=== PATIENT | female | born 1980 | race Caucasian/White ===

== ENCOUNTER 2023-01-23 12:55 | Emergency (ER) | payer OTHER, SELFPAY ==
[2023-01-23 13:02] VITALS: BP 145/98; PULSE 85; RESP 20; TEMP 36.5; O2SAT 97; BMI 26.5
--- NOTE | 2023-01-23 13:19 | ED.DENTAL1 ---
HPI - Dental/Oral General Chief complaint: Dental/Oral Stated complaint: SEVERE MOUTH PAIN Time Seen by Provider: 01/23/23 13:02 Source: patient Mode of arrival: walk-in Limitations: no limitations History of Present Illness HPI Narrative: Patient is a 42-year-old female who presents to the emergency department with increasing dental pain for the last week. She has a history of multiple dental caries but states she believes she chipped her tooth on her lip ring and has had an increase in pain to the jaw. There has not been any drainage from the tooth. No fevers or vomiting. She has no concern for . She states she had to miss work yesterday and her dentist cannot see her for 6-8 weeks which prompted her to come to the Emergency Room. Related Data Previous Rx's Medication Instructions Recorded amoxicillin 500 mg capsule 500 mg PO TID 10 days #30 caps 01/23/23 ketorolac 10 mg tablet 10 mg PO TID PRN pain #10 tabs 01/23/23 Allergies Allergy/AdvReac Type Severity Reaction Status Date / Time No Known Drug Allergies Allergy Verified 01/23/23 13:01 Review of Systems ROS Constitutional Denies: fever or chills Ears, nose, mouth, and throat Denies: throat pain Cardiovascular Denies: chest pain Respiratory Denies: shortness of breath or cough Gastrointestinal Denies: nausea or vomiting Musculoskeletal Denies: back pain or neck pain Integumentary/Breast Denies: rash Neurological Denies: headache Hematologic/Lymphatic Denies: easy bruising PFSH PFSH Social History Smoking status: Heavy tobacco smoker Exam Narrative Exam Narrative: Gen.: Awake, alert, in no distress Head: Normocephalic, atraumatic ENT: Moist mucous membranes, multiple dental caries noted with generally poor dentition and partial avulsion of tooth #28, no abscess or drainage noted. No redness or swelling under the tongue. No trismus or drooling. Clear speech. Respiratory: No respiratory distress Extremities: Moves extremities equally Psych: Normal mood and affect Neuro: No focal neuro deficit Skin: Warm, dry, intact Constitutional Vital Signs, click to edit/add: Last Vital Signs Temp 97.7 F 01/23/23 13:02 Pulse 85 01/23/23 13:02 Resp 20 01/23/23 13:02 BP 145/98 H 01/23/23 13:02 Pulse Ox 97 01/23/23 13:02 Course Vital Signs Vital signs: Vital Signs Temperature 97.7 F 01/23/23 13:02 Pulse Rate 85 01/23/23 13:02 Respiratory Rate 20 01/23/23 13:02 Blood Pressure 145/98 H 01/23/23 13:02 Pulse Oximetry 97 01/23/23 13:02 Temperature 97.7 F 01/23/23 13:02 Pulse Rate 85 01/23/23 13:02 Respiratory Rate 20 01/23/23 13:02 Blood Pressure 145/98 H 01/23/23 13:02 Pulse Oximetry 97 01/23/23 13:02 MDM - Dental/Oral MDM Narrative Medical decision making narrative: Exam is consistent with dental caries, no significant dental abscess at this time. Patient started on amoxicillin, NSAIDs with topical analgesia. Dental referrals provided. Work note provided. Follow-up with PCP and dentist and return to the Emergency Room if symptoms change or worsen. Medical Records Attestation: I reviewed the patient's medical records. Discharge Plan Discharge Chief Complaint: Dental/Oral Clinical Impression: Dental caries, Toothache Patient Disposition: Home, Self-Care Time of Disposition Decision: 13:17 Condition: Good Prescriptions / Home Meds: New amoxicillin 500 mg capsule 500 mg PO TID 10 Days Qty: 30 0RF ketorolac 10 mg tablet 10 mg PO TID PRN (Reason: pain) Qty: 10 0RF Instructions: Toothache (ED) Stand Alone Forms: Portal Instructions Referrals: Guillermo Pennington MD [Primary Care Provider] - 1 week
[2023-01-23] MEDS: BENZOCAINE 30 ML, lidocaine HCL 15 ML MM (13:27)
== END 2023-01-23 13:36 | disposition home or self-care (01) ==
PROVIDERS: Emergency Provider Student in an Organized Health Care Education/Training Program; PCP Family Medicine
DX: K02.9 Dental caries, unspecified (principal); K08.89 Other specified disorders of teeth and supporting structures; F17.210 Nicotine dependence, cigarettes, uncomplicated
CPT/HCPCS: 99283

== ENCOUNTER 2023-06-23 15:48 | Emergency (ER) | payer OTHER, SELFPAY ==
[2023-06-23 15:54] VITALS: BP 164/92; PULSE 85; RESP 18; TEMP 36.9; O2SAT 98; BMI 26.5
--- NOTE | 2023-06-23 16:07 | ED.ABDPAIN1 ---
HPI - Abdominal Pain General Chief Complaint: Abdominal Pain Stated Complaint: gallbladder, vomiting Time Seen by Provider: 06/23/23 15:55 Source: patient Mode of arrival: walk-in Limitations: no limitations History of Present Illness HPI narrative: 42 year old female presents to the ED for right-sided abd pain, N/V. Onset was 3 days ago. It became worse today. Denies fever, chills, injury, urinary sx, diarrhea. She has not had any episodes of emesis today. Rates her pain 10/10. The pain wraps around to her right flank. Reports increased pain with minimal palpation and movement. Denies chance of . She is accompanied by family. Reports previous tubal ligation. Related Data Previous Rx's Medication Instructions Recorded dicyclomine 10 mg capsule 10 mg PO TID PRN abdominal pain 06/23/23 #12 caps ondansetron 4 mg disintegrating 4 mg PO Q8H PRN nausea and 06/23/23 tablet vomiting 4 days #12 tabs Allergies Allergy/AdvReac Type Severity Reaction Status Date / Time No Known Drug Allergies Allergy Verified 01/23/23 13:01 Review of Systems ROS Constitutional Denies: fever or chills Cardiovascular Denies: chest pain Respiratory Denies: shortness of breath or cough Gastrointestinal Reports: abdominal pain, nausea and vomiting; Denies: diarrhea Genitourinary Denies: painful urination, urinary frequency, urinary urgency or blood in urine Musculoskeletal Reports: back pain; Denies: neck pain Integumentary/Breast Denies: rash or itching PFSH PFSH Social History Smoking status: Former smoker Exam Constitutional Vital Signs, click to edit/add: Last Vital Signs Temp 98.4 F 06/23/23 15:54 Pulse 74 06/23/23 18:32 Resp 18 06/23/23 18:32 BP 144/82 H 06/23/23 18:32 Pulse Ox 98 06/23/23 18:32 O2 Del Method Room Air 06/23/23 18:32 Common normals: no apparent distress and oriented x3 General appearance: cooperative; not ill appearing HENMT Mouth: oral and palatal mucosa normal and lip normal Eye Common normals: conjunctivae normal and no scleral icterus Neck & C-Spine Common normals: supple Chest Chest: symmetrical chest wall rise Respiratory Common normals: normal respiratory effort Effort & inspection: able to speak in complete sentences Cardio Common normals: regular rate and regular rhythm GI Inspection: normal to inspection Auscultation: normoactive bowel sounds Palpation: soft and tender Details: RLQ; no guarding and not rigid Back & Pelvis Common normals: no CVA tenderness Neuro Common normals: oriented x3 Sensorium/orientation: awake and alert Speech: speech normal Course Vital Signs Vital signs: Vital Signs Temperature 98.4 F 06/23/23 15:54 Pulse Rate 85 06/23/23 15:54 Respiratory Rate 18 06/23/23 15:54 Blood Pressure 164/92 H 06/23/23 15:54 Pulse Oximetry 98 06/23/23 15:54 Oxygen Delivery Method Room Air 06/23/23 15:54 Temperature 98.4 F 06/23/23 15:54 Pulse Rate 74 06/23/23 18:32 Respiratory Rate 18 06/23/23 18:32 Blood Pressure 144/82 H 06/23/23 18:32 Pulse Oximetry 98 06/23/23 18:32 Oxygen Delivery Method Room Air 06/23/23 18:32 MDM - Abdominal Pain Differential Diagnosis Differential diagnosis: Likely abdominal pain, acute appendicitis, calculus of kidney, diverticulitis, gastroenteritis, pancreatitis, small bowel obstruction and other Medical Records Attestation: I reviewed the patient's medical records. Medical records narrative: CBC, CMP, lipase, and urinalysis were unremarkable. CT scan was negative for acute findings. She was given medication here with improvement in her symptoms. She was given a copy of her CT report. She was encouraged to follow up with her pcp for a recheck, further evaluation and treatment. Return precautions were discussed. Lab Data Attestation: I reviewed the patient's lab results. Labs: Lab Results 06/23/23 06/23/23 Range/Units 16:00 16:30 WBC 9.8 (4.0-11.0) 10^3/uL RBC 4.61 (4.20-5.40) 10^6/uL Hgb 12.9 (12.0-16.0) g/dL Hct 40.0 (36.0-48.0) % MCV 86.8 (81.0-99.0) fL MCH 28.0 (26.7-34.0) pg MCHC 32.3 (29.9-35.2) g/dL RDW 12.7 (11.0-15.0) % Plt Count 421 (150-450) 10^3/uL MPV 10.6 (9.5-13.5) fL Neut % (Auto) 59.7 (43.0-75.0) % Lymph % (Auto) 30.7 (20.5-60.0) % Schleicher % (Auto) 7.0 (1.7-12.0) % Eos % (Auto) 1.5 (0.9-7.0) % Baso % (Auto) 0.9 (0.2-2.0) % Neut # (Auto) 5.8 (1.4-6.5) 10^3/uL Lymph # (Auto) 3.0 (1.2-3.8) 10^3/uL Schleicher # (Auto) 0.7 (0.3-0.8) 10^3/uL Eos # (Auto) 0.2 (0.0-0.7) 10^3/uL Baso # (Auto) 0.1 (0.0-0.1) 10^3/uL Abs Immat Gran (auto) 0.02 (0.00-0.03) 10^3/uL Imm/Tot Granulo (auto) 0.2 (0.0-0.5) % Sodium 137 (136-145) mmol/L Potassium 4.2 (3.5-5.1) mmol/L Chloride 102 (98-107) mmol/L Carbon Dioxide 29.8 (21.0-32.0) mmol/L Anion Gap 9.4 BUN 14.0 (7.0-18.0) mg/dL Creatinine 0.75 (0.55-1.02) mg/dL Est GFR ( Amer) >60 (>=60) Est GFR (Non-Af Amer) >60 (>=60) BUN/Creatinine Ratio 18.7 Glucose 90 (74-106) mg/dL Calcium 8.6 (8.5-10.1) mg/dL Total Bilirubin 0.4 (0.2-1.0) mg/dL AST 17 (15-37) U/L ALT 23 (14-59) U/L Alkaline Phosphatase 52 (46-116) U/L Total Protein 7.0 (6.4-8.2) g/dL Albumin 3.4 (3.4-5.0) g/dL Globulin 3.6 g/dL Albumin/Globulin Ratio 0.9 Lipase 32.0 (16.0-77.0) U/L Urine Color Lt. yellow (YELLOW) Urine Clarity Clear (CLEAR) Urine pH 8.0 (5.0-9.0) Ur Specific [place] 1.020 (1.005-1.025) Urine Protein Negative (NEG/TRACE) mg/dL Urine Glucose (UA) Negative (NEGATIVE) mg/dL Urine Ketones Negative (NEGATIVE) mg/dL Urine Occult Blood Negative (NEGATIVE) Urine Nitrite Negative (NEGATIVE) Urine Bilirubin Negative (NEGATIVE) Urine Urobilinogen 0.2 (0.2-1.0) EU/dL Ur Leukocyte Esterase Trace A (NEGATIVE) Urine RBC 0-2 (0-2) #/HPF Urine WBC 2-5 A (NONE SEEN) #/HPF Ur Squamous Epith Cells Moderate A (NONE/RARE) #/LPF Urine Crystals None seen (None Seen) #/HPF Urine Bacteria Trace A (NONE SEEN) #/HPF Urine Casts None seen (NONE SEEN) #/LPF Urine Mucus None seen (NONE SEEN) Ur Culture Indicated? No Urine HCG, Qual Negative (NEGATIVE) Imaging Data CT scan - abdomen: Attestation: I have reviewed the pertinent imaging results. Radiologist's impression: ITS Impressions Abdomen/Pelvis CT 06/23/23 16:39 IMPRESSION: No acute abdominal pathology. No acute inflammatory process. No obstructing urinary tract stone. No evidence for bowel obstruction. Electronically authenticated by: ALEXIS MONACO Date: 06/23/2023 17:45 Procedure: CT abdomen pelvis w con EXAM: CT abdomen pelvis w con TECHNIQUE: Axial CT images were obtained of the abdomen and pelvis with intravenous contrast. Sagittal and coronal reformatted images were also obtained. Dose reduction techniques were achieved by using automated exposure control and/or adjustment of mA and/or kV according to patient size and/or use of iterative reconstruction technique. HISTORY: Right-sided abd pain for 3 days COMPARISON: None. FINDINGS: Lower chest: The lower lungs are clear. Liver: The liver is homogeneous with normal contours and normal size. Gallbladder: The gallbladder is unremarkable. There is no intra or extrahepatic biliary dilatation. Pancreas: The pancreas is homogeneous without evidence for mass lesion or inflammation. Spleen: The spleen is unremarkable without evidence for mass lesion. Adrenal glands: The adrenal glands are unremarkable Kidneys and bladder: The kidneys are unremarkable with no evidence for mass lesion, hydronephrosis or inflammation. The ureters demonstrate normal caliber. The urinary bladder is unremarkable. GI Tract: Stomach is unremarkable. Visualized small bowel is unremarkable without evidence for obstruction or active inflammation. The appendix is unremarkable.The visualized portion of the large bowel is unremarkable. Reproductive: Small fibroid of the anterior body of the uterus. Lymph nodes: No retroperitoneal or abdominal lymphadenopathy. Vascular: The aorta is not dilated. Peritoneum: No free intraperitoneal air or fluid. No acute inflammation. 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 No acute findings. CT/CT abdomen pelvis w con IMPRESSION: No acute abdominal pathology. No acute inflammatory process. No obstructing urinary tract stone. No evidence for bowel obstruction. Electronically authenticated by: ALEXIS MONACO Date: 06/23/2023 17:45 Discharge Plan Discharge Chief Complaint: Abdominal Pain Clinical Impression: Nausea & vomiting, Abdominal pain Patient Disposition: Home, Self-Care Time of Disposition Decision: 18:25 Condition: Good Mode of Transportation: Private Vehicle Prescriptions / Home Meds: New ondansetron 4 mg tablet,disintegrating 4 mg PO Q8H PRN (Reason: nausea and vomiting) 4 Days Qty: 12 0RF dicyclomine 10 mg capsule 10 mg PO TID PRN (Reason: abdominal pain) Qty: 12 0RF Instructions: Acute Nausea and Vomiting (ED), Acute Abdominal Pain (ED) Stand Alone Forms: Portal Instructions Referrals: AMBER PATEL APRN [Primary Care Provider] - As soon as possible Discharge Date/Time: 06/23/23 18:34
[2023-06-23 16:13] LABS: Basophils Absolute Auto 0.1 10^3/uL (0.0-0.1); Basophils Percent Auto 0.9 % (0.2-2.0); Eosinophils Absolute Auto 0.2 10^3/uL (0.0-0.7); Eosinophils Percent Auto 1.5 % (0.9-7.0); Hemoglobin 12.9 g/dL (12.0-16.0); Immature Granulocytes Abs Auto 0.02 10^3/uL (0.00-0.03); Immature Granulocytes Pct Auto 0.2 % (0.0-0.5); Lymphocytes Percent Auto 30.7 % (20.5-60.0); Mean Corpuscular HGB Conc 32.3 g/dL (29.9-35.2); Mean Corpuscular Volume 86.8 fL (81.0-99.0); Mean Platelet Volume 10.6 fL (9.5-13.5); Monocytes Absolute Auto 0.7 10^3/uL (0.3-0.8); Neutrophils Absolute Auto 5.8 10^3/uL (1.4-6.5); Neutrophils Percent Auto 59.7 % (43.0-75.0); Platelet Count 421 10^3/uL (150-450); Red Blood Count 4.61 10^6/uL (4.20-5.40); Red Cell Distribution Width 12.7 % (11.0-15.0); White Blood Count 9.8 10^3/uL (4.0-11.0)
[2023-06-23] MEDS: ONDANSETRON PF 4 MG/2 ML VIAL IV (16:24)
[2023-06-23] MEDS: FENTANYL CITRATE/PF 100 MCG/2 ML VIAL 50 MCG IV (16:24)
[2023-06-23] MEDS: 0.9 % SODIUM CHLORIDE 1,000 ML 999 ML IV (16:24)
[2023-06-23 16:25] LABS: Alanine Aminotransferase 23 U/L (14-59); Albumin Globulin Ratio 0.9; Albumin Level 3.4 g/dL (3.4-5.0); Alkaline Phosphatase 52 U/L (46-116); Anion Gap 9.4; Aspartate Amino Transferase 17 U/L (15-37); BUN Creatinine Ratio 18.7; Bilirubin Total 0.4 mg/dL (0.2-1.0); Calcium 8.6 mg/dL (8.5-10.1); Carbon Dioxide 29.8 mmol/L (21.0-32.0); Chloride 102 mmol/L (98-107); Estimated GFR (African America >60 (>=60); Estimated GFR (Non-African Ame >60 (>=60); Globulin 3.6 g/dL; Glucose 90 mg/dL (74-106); Potassium 4.2 mmol/L (3.5-5.1); Sodium 137 mmol/L (136-145)
[2023-06-23 16:39] VITALS: BP 135/81; PULSE 73; RESP 16; O2SAT 98
--- NOTE | 2023-06-23 16:39 | CT_ITS ---
[address] [address] Patient Name: VINCENT SARAVIA MRN: [id number] date: 1980 Sex: F Assigned Patient Location: ER Current Patient Location: ER Accession/Order Number: [id number] Exam Date: 06/23/2023 16:55 Report Date: 06/23/2023 17:45 At the request of: JOYCE CALIXTO Procedure: CT abdomen pelvis w con EXAM: CT abdomen pelvis w con TECHNIQUE: Axial CT images were obtained of the abdomen and pelvis with intravenous contrast. Sagittal and coronal reformatted images were also obtained. Dose reduction techniques were achieved by using automated exposure control and/or adjustment of mA and/or kV according to patient size and/or use of iterative reconstruction technique. HISTORY: Right-sided abd pain for 3 days COMPARISON: None. FINDINGS: Lower chest: The lower lungs are clear. Liver: The liver is homogeneous with normal contours and normal size. Gallbladder: The gallbladder is unremarkable. There is no intra or extrahepatic biliary dilatation. Pancreas: The pancreas is homogeneous without evidence for mass lesion or inflammation. Spleen: The spleen is unremarkable without evidence for mass lesion. Adrenal glands: The adrenal glands are unremarkable Kidneys and bladder: The kidneys are unremarkable with no evidence for mass lesion, hydronephrosis or inflammation. The ureters demonstrate normal caliber. The urinary bladder is unremarkable. GI Tract: Stomach is unremarkable. Visualized small bowel is unremarkable without evidence for obstruction or active inflammation. The appendix is unremarkable.The visualized portion of the large bowel is unremarkable. Reproductive: Small fibroid of the anterior body of the uterus. Lymph nodes: No retroperitoneal or abdominal lymphadenopathy. Vascular: The aorta is not dilated. Peritoneum: No free intraperitoneal air or fluid. No acute inflammation. 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 No acute findings. CT/CT abdomen pelvis w con IMPRESSION: No acute abdominal pathology. No acute inflammatory process. No obstructing urinary tract stone. No evidence for bowel obstruction. Electronically authenticated by: ALEXIS MONACO Date: 06/23/2023 17:45
[2023-06-23 16:51] LABS: Bilirubin Urine NEGATIVE (NEGATIVE); Blood Urine NEGATIVE (NEGATIVE); Clarity Urine CLEAR (CLEAR); Color Urine LT. YELLOW (YELLOW); Glucose Urine UA NEGATIVE (NEGATIVE); Ketones Urine NEGATIVE (NEGATIVE); Leukocyte Esterase Urine TRACE (NEGATIVE); Nitrite Urine NEGATIVE (NEGATIVE); Protein Urine NEGATIVE (NEG/TRACE); Urobilinogen Urine 0.2 EU/dL (0.2-1.0)
[2023-06-23 16:53] LABS: HCG Qualitative Urine* NEGATIVE (NEGATIVE)
[2023-06-23 16:54] LABS: Urine Microscopic Indicated YES
[2023-06-23 17:04] LABS: Bacteria Urine TRACE #/HPF (NONE SEEN); Cast Seen? NONE SEEN #/LPF (NONE SEEN); Crystals Seen? None Seen #/HPF (None Seen); Mucus Urine NONE SEEN (NONE SEEN); RBC Urine 0-2 #/HPF (0-2); Squamous Epithelial Cell Urine MODERATE #/LPF (NONE/RARE); Urine Culture Indicated NO
[2023-06-23 17:14] VITALS: BP 141/95; PULSE 73; RESP 16; O2SAT 98
[2023-06-23] MEDS: DICYCLOMINE HCL 20 MG/2 ML VIAL IM (18:09)
[2023-06-23 18:11] VITALS: BP 132/85; PULSE 69; RESP 18; O2SAT 97
[2023-06-23 18:32] VITALS: BP 144/82; PULSE 74; RESP 18; O2SAT 98
== END 2023-06-23 18:34 | disposition home or self-care (01) ==
PROVIDERS: Nurse Practitioner Family; Emergency Provider Emergency Medicine; PCP Nurse Practitioner Primary Care
DX: R10.9 Unspecified abdominal pain (principal); R11.2 Nausea with vomiting, unspecified; Z87.891 Personal history of nicotine dependence
CPT/HCPCS: 36415; 74177; 80053; 81001; 83690; 84703; 85025; 96361; 96372; 96374; 96375; 99285; J0500; J2405; J3010; Q9967

== ENCOUNTER 2023-09-01 12:57 | Emergency (ER) | payer OTHER, SELFPAY ==
[2023-09-01 13:03] VITALS: BP 128/79; PULSE 101; RESP 38; TEMP 37; O2SAT 100; BMI 27.4
--- OUTSIDE RECORDS SUMMARY | 2023-09-01 13:11 | XMS_ITS | CCD ---
Author Organization [facility] Care Team Providers Care Tile Roofer Name Role Phone Je Rodriguez CNP Primary Care Provider [phone] Luz Pennington MD Primary Care Provider [phone] LUZ PENNINGTON Primary Care Unavailable MIKAYLA AUSTIN Attending Unavailable Priscilla Dash CNP Primary Care Provider [phone] Luz Pennington MD Primary Care Provider [phone] JE RODRIGUEZ Referring Unavailable LUZ PENNINGTON Primary Care Unavailable Brina Brothers CNP Primary Care Provider [phone] IDANIA JORGE Consulting Unavailchicho JORGE, DR IDANIA Atkinson Attending Unavailchicho PENNINGTON ., DR ESCOBAR Primary Care Unavailable DR IDANIA JORGE Admitting Unavailchicho e IVETTE ., DR ESCOBAR Admitting Unavailable IVETTE ., DR ESCOBAR Primary Care Unavailable IVETTE ., DR ESCOBAR Consulting Unavailable IVETTE ., DR ESCOBAR Attending Unavailable AMBER PATEL Primary Care Unavailable SAUL FERNANDEZ Attending Unavailable LUZ PENNINGTON Primary Care Unavailable ANY VILLAR Attending Unavailable ANY VILLAR Attending Unavailable ANY VILLAR Referring Unavailable LUZ PENNINGTON Primary Care Unavailable Medications Current Medications Medication Drug Class(es) Dates Sig (Normalized) Sig (Original) Acetaminophen / HYDROcodone (1 source) Opioid Agonist Start: 11-13-2021 hydrocodone-acetamin ophen (NORCO) tablet 5-325 mg (STARTER PACK) cloNIDine hydrochloride 0.1 mg oral tablet (20 sources) Central alpha-2 Adrenergic Agonist Start: 07-25-2021 cloNIDine HCl 0.1 MG Oral Tablet 07/25/2021 Provider: cyclobenzaprine hydrochloride 5 mg oral tablet (10 sources) Muscle Relaxant Start: 12-23-2021 Cyclobenzaprine HCl 5 MG Oral Tablet 12/23/2021 Provider: Je Rodriguez CNP End: 11-13-2021 take 1 tablet by mouth three times daily as needed for muscle spasms cyclobenzaprine (FLEXERIL) 10 MG tablet Take 10 mg by mouth 3 times daily as needed for Muscle spasms 0 11/13/2021 Discontinued (LIST CLEANUP) doxepin hydrochloride 10 mg oral capsule (9 sources) Tricyclic Antidepressant Start: 11-25-2021 Doxepin HCl 10 MG Oral Capsule 11/25/2021 Provider: EQ Nicotine 21 MG/24HR Transdermal Patch 24 Hour (4 sources) Start: 02-06-2022 EQ Nicotine 21 MG/24HR Transdermal Patch 24 Hour 02/06/2022 Provider: Brina Brothers CNP famotidine 40 mg oral tablet (18 sources) Histamine-2 Receptor Antagonist Start: 10-06-2021 Famotidine 40 MG Oral Tablet 10/06/2021 Provider: Brina Brothers CNP gabapentin 600 mg oral tablet (20 sources) Anti-epileptic Agent Start: 08-05-2021 Gabapenti n 600 MG Oral Tablet 08/05/2021 Provider: take 1 capsule by mo [facility] three times daily gabapentin (NEURONTIN) 300 MG capsule Ta ke 300 mg by mouth 3 times daily. 0 Active hydrOXYzine hydrochloride 25 mg oral tablet (20 sources) Antihistamine Start: 07-06-2021 hydrOXYzine HC l 25 MG Oral Tablet 07/06/2021 Provider: meclizine hydrochloride 25 mg oral tablet (20 sources) Antiemetic Start: 09-14-2021 Meclizine HCl 25 MG Oral Tablet 09/14/2021 Provider: naloxone hydrochloride 40 mg/ml nasal spray (20 sources) Opioid Antagonist Start: 09-22-2021 Narcan 4 MG/ 0.1ML Nasal Liquid 09/22/2021 Provider: Je Rodriguez CNP ondansetron 4 mg disintegrating oral tablet (11 sources) Serotonin-3 Receptor Antagonist Start: 01-06-2022 Ondansetron 4 MG Ora l Tablet Disintegrating 02/06/2022 Provider: Brina Brothers CNP polyethylene glycol 3350 89717 mg powder for oral solution (20 sources) Osmotic Laxative Start: 09-27-2021 MiraLax 17 GM /SCOOP Oral Powder 09/27/2021 Provider: Je Rodriguez CNP sertraline 100 mg oral tablet (20 sources) Serotonin Reuptake Inhibitor Start: 02-06-2022 Zoloft 100 MG Oral Tablet 02/06/2022 Provider: Brina Brothers CNP Start: 01-06-2022 End: 02-06-2022 Sertraline HCl 50 MG Oral Ta blet 01/06/2022 - 02/06/2022 Provider: Je Rodriguez CNP Start: 12-16-2021 End: 01-06-2022 Sertraline HCl 25 MG Oral Ta blet 12/16/2021 - 01/06/2022 Provider: Priscilla Dash FENDER MECHANIC Start: 08-31-2021 End: 11-03-2021 Sertraline HCl 25 MG Oral Ta blet 08/31/2021 - 11/03/2021 Provider: Completed/Discontinued Medications Medication Drug Class(es) Dates Sig (Normalized) Sig (Original) buprenorphine 8 mg / naloxone 2 mg sublingual film (20 sources) Partial Opioid Agonist, Opioid Antagonist Start: 02-23-2022 End: 03-02-2022 Suboxone 8-2 MG Sublingual Film 02/24/2022 - 03/02/2022 Provider: Je Rodriguez CNP Start: 09-22-2021 End: 02-06-2022 Suboxone 8-2 MG Sublingual F ilm 09/27/2021 - 09/30/2021 Provider: Je Rodriguez CNP cephalexin 500 mg oral tablet (7 sources) Cephalosporin Antibacterial Start: 01-06-2022 End: 01-20-2022 Cephalexin 500 MG Oral Tablet 01/06/2022 - 01/20/2022 Provider: Je Rodriguez CNP guanFACINE 1 mg oral tablet (1 source) Central alpha-2 Adrenergic Agonist End: 11-13-2021 take 2 tablets by mouth once daily guanFACINE (TENEX) 1 MG tablet Take 2 mg by mouth daily 0 11/13/2021 Discontinued (LIST CLEANUP) hydrocortisone 5 mg/ml topical cream (6 sources) Corticosteroid Start: 01-20-2022 End: 03-02-2022 Hydrocortisone 0.5% External Cream 01/20/2022 - 03/02/2022 Provider: Priscilla Dash CNP 2 ml ketorolac tromethamine 30 mg/ml cartridge (1 source) Nonsteroidal Anti-inflammatory Drug, Cyclooxygenase Inhibitor Start: 11-13-2021 End: 11-13-2021 ketorolac (TORADOL) injection 45 mg Start: 11-13-2021 End: 11-13-2021 ketorolac (TORADOL) injectio n 45 mg lamoTRIgine 100 mg oral tablet (1 source) Mood Stabilizer, Anti-epileptic Agent End: 11-13-2021 take 1 tablet by mouth once daily lamoTRIgine (LAMICTAL) 100 MG tablet Take 100 mg by mouth daily 0 11/13/2021 Discontinued (LIST CLEANUP) Problems Active Problems Problem Classification Problem Date Documented Da te Episodic/Chronic Alcohol-related disorders (20 sources) Alcohol abuse; Translations: [Alcohol abuse, unspecified] Onset: 09-22-2021 Chronic Anxiety disorders (20 sources) Chronic post-traumatic stress disorder; Translations: [Post-traumatic stress disorder, chronic] Onset: 12-23-2021 Chronic E Codes: Fall (1 source) Fall on same level from slipping, tripping and stumbling without subsequent striking against object, initial encounter; Translations: [FALL SAME LVL SLIP NO STRK OBJ INIT] Onset: 08-29-2022 Episodic Essential hypertension (2 sources) Essential (primary) hypertension; Translations: [Hypertensive disorder] Onset: 08-16-2023 Chronic Nonspecific chest pain (3 sources) Other chest pain; Translations: [Chest pain, unspecified] Onset: 08-03-2023 Episodic Other connective tissue disease (3 sources) Pain in left lower leg; Translations: [PAIN IN LEFT LOWER LEG] Onset: 08-28-2022 Episodic Other injuries and conditions due to external causes (1 source) Injury of buttock; Translations: [Unspecified injury of lower back, initial encounter] Episodic Other nutritional; endocrine; and metabolic disorders (20 sources) Finding of body mass index; Translations: [Body mass index (observable entity)] Onset: 09-22-2021 Episodic Sprains and strains (1 source) Strain of other muscle(s) and tendon(s) at lower leg level, left leg, initial encounter; Translations: [STRAIN OTH MSC TEND LOW LT LEG INIT] Onset: 08-29-2022 Episodic Substance-related disorders (20 sources) Cocaine abuse; Translations: [Cocaine abuse, unspecified] Onset: 09-22-2021 Chronic Unclassified (1 source) CONTACT W/AND (SUSP) EXPOS COVID-19; Translations: [CONTACT W/AND (SUSP) EXPOS COVID-19] Onset: 09-05-2021 Past or Other Problems Problem Classification Problem Date Documented Da te Episodic/Chronic Acute bronchitis (4 sources) Acute bronchitis, unspecified; Translations: [ACUTE BRONCHITIS UNSPECIFIED] Onset: 09-01-2021 Episodic Immunizations and screening for infectious disease (20 sources) Encounter for screening for other viral diseases; Translations: [Screening For Hep C] Onset: 09-22-2021 Episodic Intestinal infection (1 source) Viral intestinal infection, unspecified; Translations: [VIRAL INTESTINAL INFECTION UNSPEC] Onset: 09-05-2021 Episodic Other screening for suspected conditions (not mental disorders or infectious disease) (20 sources) Encounter for screening for diabetes mellitus; Translations: [Diabetes Risk Test Score] Onset: 09-22-2021 Episodic Results Test Name Value Interpretation Reference Range Facility BASIC METABOLIC PANLon 08-03 Anion gap [Moles/Vol] 7 mmol/L Normal 5-15 [facility] Comment on above: Performed By: #### C BCA, 30160-7, BMP, 40543-1, 36437-4, 43251-8, THYR #### [facility] ([id number]) [address] [place] [address] 17941 Calcium [Mass/Vol] 8.6 mg/dL Normal 8.5-10.5 [facility] Comment on above: Performed By: #### C BCA, 10238-7, BMP, 86130-1, 26990-8, 60955-6, THYR #### [facility] ([id number]) [address] [place] [address] 23877 Chloride [Moles/Vol] 103 mmol/L Normal 98-109 [facility] Comment on above: Performed By: #### C BCA, 17205-1, BMP, 09782-6, 09760-7, 57333-4, THYR #### [facility] ([id number]) [address] [place] [address] 90863 CO2 [Moles/Vol] 25 mmol/L Normal 22-32 [facility] Comment on above: Performed By: #### C BCA, 54634-4, BMP, 96021-3, 91983-1, 50984-2, THYR #### [facility] ([id number]) [address] [place] [address] 72060 Creatinine [Mass/Vol] 0.74 mg/dL Normal 0.40-1.00 [facility] Comment on above: Result Comment: METH OD TRACEABLE TO IDMS STANDARD Performed By: #### C BCA, 44871-0, BMP, 15195-5, 27028-2, 29349-0, THYR #### [facility] ([id number]) [address] [place] [address] 96191 eGFR (CKD-EPI) NON-RACE DEPENDENT >90 Normal >59 [facility] Comment on above: Result Comment: Reported eGFR is based on the CKD-EPI 2020 equation that does not use a race coefficient. Performed By: #### C BCA, 74187-0, BMP, 26390-7, 82811-2, 05039-1, THYR #### [facility] ([id number]) [address] [place] [address] 04347 Glucose [Mass/Vol] 91 mg/dL Normal 65-99 [facility] Comment on above: Performed By: #### C BCA, 02812-5, BMP, 02034-3, 08194-0, 88567-4, THYR #### [facility] ([id number]) [address] [place] [address] 62424 Potassium [Moles/Vol] 3.9 mmol/L Normal 3.5-5.0 [facility] Comment on above: Performed By: #### C BCA, 60180-6, BMP, 45538-9, 22363-8, 55569-8, THYR #### [facility] ([id number]) [address] [place] [address] 85739 Sodium [Moles/Vol] 135 mmol/L Normal 134-146 [facility] Comment on above: Performed By: #### C BCA, 84380-7, BMP, 86976-8, 38864-8, 86451-0, THYR #### [facility] ([id number]) [address] [place] [address] 58236 Urea nitrogen [Mass/Vol] 15 mg/dL Normal 5-23 [facility] Comment on above: Performed By: #### C BCA, 65108-4, BMP, 60353-1, 77071-8, 99518-1, THYR #### [facility] ([id number]) [address] [place] [address] 61088 CBC AND AUTO DIFFon 08-03-19 24 ABSOLUTE BASOPHIL 0.1 X10E9/L Normal 0.0-0.2 [facility] Comment on above: Performed By: #### C BCA, 20817-0, BMP, 27614-2, 86503-4, 08587-3, THYR #### [facility] ([id number]) [address] [place] [address] 17600 ABSOLUTE NEUTROPHIL 6.9 X10E9/L High 1.5-6.6 [facility] Comment on above: Performed By: #### C BCA, 41967-0, BMP, 80363-6, 40022-6, 69229-6, THYR #### [facility] ([id number]) [address] [place] [address] 75658 Basophils/100 WBC (Bld) 1.0 % Normal [facility] Comment on above: Performed By: #### C BCA, 86181-7, BMP, 24015-3, 48501-4, 36048-9, THYR #### [facility] ([id number]) [address] [place] [address] 31356 Eosinophils (Bld) [#/Vol] 0.2 10*3/uL Normal 0.0-0.4 [facility] Comment on above: Performed By: #### C BCA, 68629-9, BMP, 06560-2, 28328-0, 38314-0, THYR #### [facility] ([id number]) [address] [place] [address] 77310 Eosinophils/100 WBC (Bld) 1.9 % Normal [facility] Comment on above: Performed By: #### C BCA, 34369-3, BMP, 57214-5, 14738-7, 80117-7, THYR #### [facility] ([id number]) [address] [place] [address] 48241 Erythrocyte distribution width (RBC) [Ratio] 13.0 % Normal 11.5-15.0 [facility] Comment on above: Performed By: #### C BCA, 05141-7, BMP, 57620-9, 30559-4, 48532-7, THYR #### [facility] ([id number]) [address] [place] [address] 63685 Hematocrit (Bld) [Volume fraction] 36.8 % Normal 35-47 [facility] Comment on above: Performed By: #### Maria M BCA, 83106-4, BMP, 06661-2, 29901-5, 26781-4, THYR #### [facility] ([id number]) [address] [place] [address] 46434 Hemoglobin (Bld) [Mass/Vol] 12.3 g/dL Normal 11.7-15.5 [facility] Comment on above: Performed By: #### Maria M BCA, 12140-4, BMP, 71800-7, 78566-6, 09211-2, THYR #### [facility] ([id number]) [address] [place] [address] 64637 Lymphocytes (Bld) [#/Vol] 4.2 10*3/uL High 1.0-3.5 [facility] Comment on above: Performed By: #### C BCA, 05260-5, BMP, 62435-9, 63820-7, 08413-9, THYR #### [facility] ([id number]) [address] [place] [address] 44106 Lymphocytes/100 WBC (Bld) 34.2 % Normal [facility] Comment on above: Performed By: #### C JARRELL, 87375-3, BMP, 28014-1, 54234-8, 37274-7, THYR #### [facility] ([id number]) [address] [place] [address] 55536 MCH (RBC) [Entitic mass] 28.0 pg Normal 27-34 [facility] Comment on above: Performed By: #### C JARRELL, 08952-2, BMP, 83166-5, 49502-8, 14340-3, THYR #### [facility] ([id number]) [address] [place] [address] 03655 MCHC (RBC) [Mass/Vol] 33.5 g/dL Normal 32-36 [facility] Comment on above: Performed By: #### Maria M BCA, 47696-4, BMP, 09343-7, 83829-1, 71983-3, THYR #### [facility] ([id number]) [address] [place] [address] 56845 MCV (RBC) [Entitic vol] 84 fL Normal 80-100 [facility] Comment on above: Performed By: #### Maria M BCA, 84928-8, BMP, 81646-8, 22765-7, 33575-8, THYR #### [facility] ([id number]) [address] [place] [address] 64942 Monocytes (Bld) [#/Vol] 0.8 10*3/uL Normal 0-0.9 [facility] Comment on above: Performed By: #### C JARRELL, 75977-2, BMP, 17572-5, 85094-5, 63562-5, THYR #### [facility] ([id number]) [address] [place] [address] 45571 Monocytes/100 WBC (Bld) 6.8 % Normal [facility] Comment on above: Performed By: #### C JARRELL, 27718-9, BMP, 56906-6, 33130-5, 29461-8, THYR #### [facility] ([id number]) [address] [place] [address] 98073 Neutrophils/100 WBC (Bld) 56.1 % Normal [facility] Comment on above: Performed By: #### Maria M VIEYRA, 32892-2, BMP, 16218-8, 80743-5, 03997-8, THYR #### [facility] ([id number]) [address] [place] [address] 78608 Platelet mean volume (Bld) [Entitic vol] 9.0 fL Normal 7-12 [facility] Comment on above: Performed By: #### Maria M VIEYRA, 95138-0, BMP, 23568-9, 18950-0, 86901-5, THYR #### [facility] ([id number]) [address] [place] [address] 88825 Platelets (Bld) [#/Vol] 422 10*3/uL Normal 150-450 [facility] Comment on above: Performed By: #### Maria M VIEYRA, 88451-8, BMP, 73827-5, 58816-5, 75861-5, THYR #### [facility] ([id number]) [address] [place] [address] 58425 RBC COUNT 4.40 X10E12/L Normal 3.80-5.20 [facility] Comment on above: Performed By: #### C BCA, 97483-4, BMP, 69526-9, 17384-1, 28214-3, THYR #### [facility] ([id number]) [address] [place] [address] 61331 WBC (Bld) [#/Vol] 12.3 10*3/uL High 4.0-11.0 [facility] Comment on above: Performed By: #### C BCA, 40948-9, BMP, 57042-4, 37457-8, 14950-7, THYR #### [facility] ([id number]) [address] [place] [address] 34944 Fibrin D-dimer DDU (PPP) [Ma ss/Vol]on 08-03-2023 D DIMER <150 Normal <255 [facility] Comment on above: Result Comment: Results <255 ng/mL DDU: The presence of a VTE can safely be excluded with a negative D-Dimer result and Wells score. A negative result doesn't exclude the possibility of DIC. The test be repeated along with other diagnostic tests if the patient's symptoms persist or worsen. [email or web address] Performed By: #### C BCA, 91655-5, BMP, 49621-0, 60054-9, 97189-6, THYR #### [facility] ([id number]) [address] [place] [address] 50037 MAGNESIUMon 08-03-2023 Magnesium [Mass/Vol] 2.4 mg/dL Normal 1.8-2.6 [facility] Comment on above: Performed By: #### C BCA, 25045-8, BMP, 14502-2, 88212-2, 19158-2, THYR #### [facility] ([id number]) [address] [place] [address] 72116 Natriuretic peptide B [Mass/ Vol]on 08-03-2023 Natriuretic peptide B (Bld) [Mass/Vol] 7 pg/mL Normal <100.0 [facility] Comment on above: Performed By: #### C BCA, 75426-3, BMP, 41145-5, 94798-2, 14212-7, THYR #### [facility] ([id number]) [address] [facility] [place] [address] SARS/FLU A+B/RSV by NAAT/Mol ecularon 08-03-2023 SARS/FLU A+B/RSV by NAAT/Molecular FLU A PCR Negative (qualifier value) FLU B PCR Negative (qualifier value) RSV by PCR Negative (qualifier value) SARS CoV 2 Not detected (qualifier value) NOTE The Xpert Xpress SARS-CoV-2/Flu/RSV Plus test is a rapid, multiplexed real-time RT-PCR test intended for the simultaneous qualitative detection and differentiation of SARS-CoV-2, influenza A, influenza B and respiratory syncytial virus (RSV) viral RNA from individuals suspected of respiratory viral infection consistent with COVID-19 by their healthcare provider. This test has not been validated in asymptomatic patients. The Xpert Xpress SARS-CoV-2 test is intended for use by qualified and trained operators who are performing tests using either [employer] DX or [employer]me systems and is limited to laboratories that meet the CLIA requirements to perform high and moderate complexity tests. The Xpert Xpress SARS-CoV-2/Flu/RSV Plus is only for use under the Food and Drug Administration's Emergency Use Authorization. Results are for the simultaneous detection and differentiation of SARS-CoV-2, influenza A, influenza B and RSV nucleic acids in clinical specimens. SARS-CoV-2, influenza A, influenza B and RSV RNA identified by this test are generally detectable in upper respiratory samples during the acute phase of infection. Positive results are indicative of the presence of the identified virus, but do not rule out bacterial infection or co-infection with other pathogens not detected by this test. Clinical correlation with patient history and other diagnostic information is necessary to determine patient infection status. The agent detected may not be the definite cause of disease. Negative results do not preclude SARS-CoV-2, influenza A, influenza B and RSV infection and should not be used as the sole basis for treatment or other patient management decisions. Negative results must be combined with clinical observations, patient history and epidemiological information. An Invalid result may occur with specimen-associated inhibition unable to be resolved with specimen repeat. Fact Sheet for Healthcare Providers: https://www.fda.gov /media/885427/downl oad Fact Sheet for Patients: https://www.fda.gov /media/076039/downl oad Normal [facility] Comment on above: Performed By: #### C OVFLR #### [facility] ([id number]) [address] [place] [address] 37009 THYROID PROFILEon 08-03-2023 Free T4 [Mass/Vol] 0.75 ng/dL Normal 0.61-1.60 [facility] Comment on above: Performed By: #### C JARRELL, 75906-6, BMP, 65062-8, 87301-9, 68384-2, THYR #### [facility] ([id number]) [address] [place] [address] 71740 TSH 3.38 uIU/mL Normal 0.49-4.67 [facility] Comment on above: Performed By: #### C BCA, 74433-9, BMP, 46094-1, 94272-6, 36367-5, THYR #### [facility] ([id number]) [address] [place] [address] 46430 TROPONIN Ion 08-03-2023 Troponin I.cardiac [Mass/Vol] ng/mL Normal 0.00-0.04 [facility] Comment on above: Performed By: #### C BCA, 48102-3, BMP, 54219-7, 95677-3, 96596-5, THYR #### [facility] ([id number]) [address] [place] [address] 18530 XR CHEST 1 VWon 08-03-2023 XR CHEST 1 VW XR CHEST 1 VW HISTORY: Right chest pain COMPARISON: Chest x-ray 11/26/2018 FINDINGS: Portable AP upright view of the chest was performed. Cardiac silhouette is within normal limits. No airspace consolidation or vascular congestion. No pleural effusion or pneumothorax. IMPRESSION: * No acute abnormality. 9 Finalized by Omid Valle MD on 08/02/2023 11:52 PM Normal [facility] Chlamydia/GC DNA, Uron 01-09 Chlamydia Probe, Ur Negative Normal NEG [facility] Comment on above: Result Comment: CHLA MYDIA TRACHOMATIS DNA not detected by nucleic acid amplification. This test is intended for medical purposes only and is not valid for the evaluation of suspected sexual abuse or for other forensic purposes. In certain contexts, culture may be required to meet applicable laws and regulations for diagnosis of C. trachomatis and N. gonorrhoeae infections. Per 2014 CDC recommendations, this test does not include confirmation of positive results by an alternative nucleic acid target. Performed By: #### U AX, TRCMOL, UCGP, UMICAO #### [facility] [address] [place] [address] 43608 Encephalographer: Idris Rene MD Gonorrhea Probe, Ur Negative Normal NEG [facility] Comment on above: Result Comment: NEIS SERIA GONORRHOEAE DNA not detected by nucleic acid amplification. This test is intended for medical purposes only and is not valid for the evaluation of suspected sexual abuse or for other forensic purposes. In certain contexts, culture may be required to meet applicable laws and regulations for diagnosis of C. trachomatis and N. gonorrhoeae infections. Per 2014 CDC recommendations, this test does not include confirmation of positive results by an alternative nucleic acid target. Performed By: #### U AX, TRCMOL, UCGP, UMICAO #### [facility] [place], [place] [id number] Encephalographer: Idris Rene MD Trich Vag, Molecularon 01-08 Trich Vag, Molecular Negative Normal NEG [facility] Comment on above: Result Comment: T. v aginalis DNA not detected Results should be interpreted in conjunction with other clinical data. This test is intended for medical purposes only and is not valid for the evaluation of suspected sexual abuse or for other forensic purposes. This test has not been evaluated in women or in patients less than 16 years of age. Performed By: #### U AX, TRCMOL, UCGP, UMICAO #### [facility] [address] [place] [address] 11631 Encephalographer: Idris Rene MD Microscopic Urinalysison - [facility] Bacteria, UA MANY Abnormal None [facility] Epithelial Cells UA 20 TO 50 [facility] Interpretation and review of laboratory results Abnormal [facility] RBC, UA 0 TO 2 [facility] Comment on above: Reference range defi tracy for non-centrifuged specimen. WBC, UA 5 TO 10 [facility] Trich Vag, Molecularon 01-07 Source: .URINE Normal [facility] Comment on above: Performed By: #### U AX, TRCMOL, UCGP, UMICAO #### [facility] [address] [place] [address] 71864 Encephalographer: Idris Rene MD UA w/Reflex Cultureon 2021 Bilirubin, SemiQt,Ur Negative Normal NEG [facility] Comment on above: Performed By: #### U AX, TRCMOL, UCGP, UMICAO #### [facility] [address] [place] [address] 30440 Encephalographer: Idris Rene MD Blood, Urine Negative Normal NEG [facility] Comment on above: Performed By: #### U AX, TRCMOL, UCGP, UMICAO #### [facility] [address] [place] [address] 62210 Encephalographer: Idris Rene MD Clarity (U) Turbid Abnormal CLEAR [facility] Comment on above: Performed By: #### U AX, TRCMOL, UCGP, UMICAO #### [facility] [facility] [address] [place] [id number] Encephalographer: Idris Rene MD Color (U) Yellow Normal YEL [facility] Comment on above: Performed By: #### U AX, TRCMOL, UCGP, UMICAO #### [facility] [address] [place] [id number] Encephalographer: Idris Rene MD Glucose Ql (U) Negative Normal NEG [facility] Comment on above: Performed By: #### U AX, TRCMOL, UCGP, UMICAO #### [facility] [address] [place] [id number] Encephalographer: Idris Rene MD Ketones Ql (U) TRACE Abnormal NEG [facility] Comment on above: Performed By: #### U AX, TRCMOL, UCGP, UMICAO #### [facility] [address] [place] [id number] Encephalographer: Idris Rene MD Leukocyte esterase Test strip Ql (U) SMALL Abnormal NEG [facility] Comment on above: Performed By: #### U AX, TRCMOL, UCGP, UMICAO #### [facility] [address] [place] [id number] Encephalographer: Idris Rene MD Nitrite,Ur Negative Normal NEG [facility] Comment on above: Performed By: #### U AX, TRCMOL, UCGP, UMICAO #### [facility] [address] [place] [id number] Encephalographer: Idris Rene MD PH,Ur 6.0 Normal 5.0-8.0 [facility] Comment on above: Performed By: #### U AX, TRCMOL, UCGP, UMICAO #### [facility] [address] [place] [phone] Encephalographer: Idris Rene MD Protein Ql (U) Negative Normal NEG [facility] Comment on above: Performed By: #### U AX, TRCMOL, UCGP, UMICAO #### [facility] [address] [place] [address] Encephalographer: Idris Rene MD Spec. [place],Ur 1.021 Normal 1.005-1.030 [facility] Comment on above: Performed By: #### U AX, TRCMOL, UCGP, UMICAO #### [facility] [address] [place] [address] Encephalographer: Idris Rene MD Urobilinogen,Ur Normal Normal NORM [facility] Comment on above: Performed By: #### U AX, TRCMOL, UCGP, UMICAO #### [facility] [address] [place] [address] Encephalographer: Idris Rene MD Urinalysis with Reflex to Cu ltureon 01-07-2022 Bilirubin Urine Negative NEGATIVE [facility] Color, UA Yellow Yellow [facility] Glucose, Ur Negative NEGATIVE [facility] Interpretation and review of laboratory results Abnormal [facility] Ketones Ql (U) TRACE Abnormal NEGATIVE [facility] Leukocyte esterase Test strip Ql (U) SMALL Abnormal NEGATIVE [facility] Nitrite, Urine Negative NEGATIVE [facility] pH, UA 6.0 5 - 8 [facility] Protein, UA Negative NEGATIVE [facility] Specific [place], UA 1.021 1.005 - 1.03 [facility] Turbidity UA Turbid Abnormal Clear [facility] Urine Hgb Negative NEGATIVE [facility] Urobilinogen, Urine Normal Normal [facility] Urinalysis,Microon 2 ----- Normal [facility] Comment on above: Performed By: #### U AX, TRCMOL, UCGP, UMICAO #### [facility] [address] [place] [address] Encephalographer: Idris Rene MD Bacteria MANY Abnormal NONE [facility] Comment on above: Performed By: #### U AX, TRCMOL, UCGP, UMICAO #### [facility] [address] [place] [id number] Encephalographer: Idris Rene MD Epithelial cells LM Ql (Urine sed) 20 TO 50 Normal 0-5 [facility] Comment on above: Performed By: #### U AX, TRCMOL, UCGP, UMICAO #### [facility] [address] [place] [address] [id number] Encephalographer: Idris Rene MD Urine RBC's 0 TO 2 Normal 0-4 [facility] Comment on above: Result Comment: Refe rence range defined for non-centrifuged specimen. Performed By: #### U AX, TRCMOL, UCGP, UMICAO #### [facility] [employer] [address] [place] [address] [id number] Encephalographer: Idris Rene MD Urine WBC's 5 TO 10 Normal 0-5 [facility] Comment on above: Performed By: #### U AX, TRCMOL, UCGP, UMICAO #### [facility] [address] [place] [address] [id number] Encephalographer: Idris Rene MD Laboratory - Chemistry and C hemistry - challengeOrdered By: Je Rodriguez on 01-06-2022 Ketones Ql (U) TRACE Abnormal (NEG ) [facility] Work Phone: Comment on above: Note: Responsible Ob ms sql server developer: FRITZ HUANG ([id number]) Laboratory - Microbiology an d Antimicrobial susceptibilityOrdered By: Je Rodriguez on 01-06-2022 Bacteria identified Cx Nom (Unsp spec) MANY Abnormal (NONE ) [facility] Work Phone: Comment on above: Note: Responsible Ob ms sql server developer: FRITZ HUANG ([id number]) Laboratory - Specimen inform ationOrdered By: Je Rodriguez on 01-06-2022 Clarity (U) Turbid Abnormal (CLEAR ) [facility] Work Phone: Comment on above: Note: Responsible Ob ms sql server developer: FRITZ HUANG ([id number]) Color (U) Yellow (YEL ) [facility] Work Phone: Comment on above: Note: Responsible Ob ms sql server developer: FRITZ HUANG ([id number]) Laboratory - UrinalysisOrder ed By: Je Rodriguez on 01-06-2022 Epithelial cells LM Ql (Urine sed) 20 TO 50 /HPF (0-5 ) [facility] Work Phone: Comment on above: Note: Responsible Ob ms sql server developer: FRITZ HUANG ([id number]) No Panel InformationOrdered By: Je Rodriguez on 01-06-2022 ----- See Note [facility] Work Phone: Comment on above: Note: Responsible Ob ms sql server developer: FRITZ HUANG ([id number]) Bilirubin, SemiQt,Ur Negative (NEG ) [facility] Work Phone: Comment on above: Note: Responsible Ob ms sql server developer: FRITZ HUANG ([id number]) Blood, Urine Negative (NEG ) [facility] Work Phone: Comment on above: Note: Responsible Ob ms sql server developer: FRITZ HUANG ([id number]) Chlamydia Probe, Ur Negative (NEG ) [facility] Work Phone: Comment on above: Note: CHLAMYDIA TRAC HOMATIS DNA not detected by nucleic acid amplification.This test is intended for medical purposes only and is not valid for theevaluation of suspected sexual abuse or for other forensic purposes.In certain contexts, culture may be required to meet applicable laws andregulations for diagnosis of C. trachomatis and N. gonorrhoeae infections.Per 2014 CDC recommendations, this test does not include confirmation ofpositive results by an alternative nucleic acid target.Responsible Observer: CFORTYEIGH AUTOFILE ([id number]) Glucose,Semi-qnt,Ur Negative (NEG ) [facility] Work Phone: Comment on above: Note: Responsible Ob ms sql server developer: FRITZ HUANG ([id number]) Gonorrhea Probe, Ur Negative (NEG ) [facility] Work Phone: Comment on above: Note: NEISSERIA GONO RRHOEAE DNA not detected by nucleic acid amplification.This test is intended for medical purposes only and is not valid for theevaluation of suspected sexual abuse or for other forensic purposes.In certain contexts, culture may be required to meet applicable laws andregulations for diagnosis of C. trachomatis and N. gonorrhoeae infections.Per 2014 CDC recommendations, this test does not include confirmation ofpositive results by an alternative nucleic acid target.Responsible Observer: CFORTYEIGH AUTOFILE ([id number]) Leuckocyte Esterase SMALL Abnormal (NEG ) [facility] Work Phone: Comment on above: Note: Responsible Ob ms sql server developer: FRITZ HUANG ([id number]) Nitrite,Ur Negative (NEG ) [facility] Work Phone: Comment on above: Note: Responsible Ob ms sql server developer: FRITZ HUANG ([id number]) PH,Ur 6.0 (5.0-8.0 ) [facility] Work Phone: Comment on above: Note: Responsible Ob ms sql server developer: FRITZ HUANG ([id number]) Protein, Semi-qnt,Ur Negative (NEG ) [facility] Work Phone: Comment on above: Note: Responsible Ob ms sql server developer: FRITZ HUANG ([id number]) Reported Physicians See Note [facility] Work Phone: Comment on above: Note: Reported Physi cians:Ordering: Michael, KiannaieAttending: Michael, KiannaieReferring: MichaelJe Source: .URINE [facility] Work Phone: Comment on above: Note: Responsible Ob ms sql server developer: PORTER DALTON ([id number]) Spec. [place],Ur 1.021 (1.005-1.03 0 ) [facility] Work Phone: Comment on above: Note: Responsible Ob ms sql server developer: FRITZ HUANG ([id number]) Trich Vag, Molecular Negative (NEG ) [facility] Work Phone: Comment on above: Note: T. vaginalis D NA not detectedResults should be interpreted in conjunction with other clinical data.This test is intended for medical purposes only and is not valid for theevaluation of suspected sexual abuse or for other forensic purposes.This test has not been evaluated in women or in patients less than 16years of age.Responsible Observer: ROCIO GARCÍA ([id number]) Urine RBC's 0 TO 2 /HPF (0-4 ) [facility] Work Phone: Comment on above: Note: Reference rang e defined for non-centrifuged specimen.Responsible Observer: FRITZ HUANG ([id number]) Urine WBC's 5 TO 10 /HPF (0-5 ) [facility] Work Phone: Comment on above: Note: Responsible Ob ms sql server developer: FRITZ REINA ([id number]) Urobilinogen,Ur Normal (NORM ) [facility] Work Phone: Comment on above: Note: Responsible Ob ms sql server developer: FRITZ REINA ([id number]) Covid-19 PCR ([facility])on 08-10 SARS-CoV-2 (COVID-19) RNA JOHNNIE+probe Ql (Unsp spec) Not detected Normal NOT DETECTED [facility] Comment on above: Result Comment: When diagnostic testing is negative, the possibility of a false negative should be considered in the context of a patient's recent exposures and the presence of clinical signs and symptoms consistent with SARS-CoV-2. This test is not yet approved or cleared by the [place] FDA. When there are no FDA-approved or cleared tests available, and other criteria are met, FDA can make tests available under an emergency access mechanism called an Emergency Use Authorization (EUA). The EUA for this test is supported by the [place] of Health and Human Service's declaration that circumstances exist to justify the emergency use of in vitro diagnostics for the detection and/or diagnosis of the virus that causes COVID-19. This EUA will remain in effect for the duration of the COVID-19 declaration justifying emergency of IVDs, unless it is terminated or revoked by the FDA (after which the test may no longer be used). Performed By: #### C [facility] #### [facility] [address] [place] [address] Dr. Jay Weaver INFLUENZA A AND B AGon 09-01 [facility] BELOW Normal [facility] Comment on above: Result Comment: Nega tive for Flu A protein angiten. Infection due to Flu A cannot be ruled out. Flu A angiten in the sample may be below the detection limit of the test. Performed By: #### I NFLUAB #### [facility] [address] [place] [address] Dr. [facility] Normal [facility] Comment on above: Result Comment: Nega tive for Flu B protein antigen. Infection due to Flu B cannot be ruled out. Flu B antigen in the sample may be below the detection limit of the test. Performed By: #### I NFLUAB #### [facility] [address] [place] [address] Dr. Jay Weaver INFLUENZA A AG Negative Normal NEGATIVE SEE COMMENT [facility] Comment on above: Performed By: #### I NFLUAB #### [facility] [address] [place] [address] Dr. Jay Weaver INFLUENZA B AG Negative Normal NEGATIVE SEE COMMENT [facility] Comment on above: Performed By: #### I NFLUAB #### [facility] [address] [place] [address] Dr. Jay Weaver INTERNAL CONTROLS Within Normal Limits Normal Within Normal Limits [facility] Comment on above: Performed By: #### I NFLUAB #### [facility] [address] [place] [address] Dr. Jay Weaver Vital Signs Date Time Vital Sign Value Performing Clinician Faci lity 03-02-2022 19:18-0400 Body height 156.21 cm Brina Brothers CNP Work Phone: [facility] Work Phone: 03-02-2022 19:18-0400 Body mass index (BMI) [Ratio] 25.5 kg/m2 Brina Brothers CNP Work Phone: [facility] Work Phone: 03-02-2022 19:18-0400 Body surface area Derived from formula 1.62 m2 Brina Brothers CNP Work Phone: [facility] Work Phone: 03-02-2022 19:18-0400 Body temperature 97.6 [degF] Brina Brothers CNP Work Phone: [facility] Work Phone: 03-02-2022 19:18-0400 Body weight 62.14 kg Brina Brothers CNP Work Phone: [facility] Work Phone: 03-02-2022 19:18-0400 Diastolic blood pressure 62 mm[Hg] Brina Brothers CNP Work Phone: [facility] Work Phone: 03-02-2022 19:18-0400 Heart rate 68 /min Brina Brothers CNP Work Phone: [facility] Work Phone: 03-02-2022 19:18-0400 SaO2% (BldA) [Mass fraction] 98 % Brina Brothers CNP Work Phone: [facility] Work Phone: 03-02-2022 19:18-0400 Systolic blood pressure 124 mm[Hg] Brina Brothers CNP Work Phone: [facility] Work Phone: 02-06-2022 17:00-0400 Body height 156.21 cm Je Rodriguez CNP Work Phone: [facility] Work Phone: 02-06-2022 17:00-0400 Body mass index (BMI) [Ratio] 24.5 kg/m2 Jemin Rodriguez CNP Work Phone: [facility] Work Phone: 02-06-2022 17:00-0400 Body surface area Derived from formula 1.59 m2 Jemin Rodriguez MARICRUZ Work Phone: [facility] Work Phone: 02-06-2022 17:00-0400 Body temperature 98 [degF] Jemin Rodriguez FENDER MECHANIC Work Phone: [facility] Work Phone: 02-06-2022 17:00-0400 Body weight 59.69 kg Jemin Rodriguez [employer]CH[employer] Work Phone: [facility] Work Phone: 02-06-2022 17:00-0400 Diastolic blood pressure 78 mm[Hg] Je Michael [employer] Work Phone: [facility] Work Phone: 02-06-2022 17:00-0400 Heart rate 103 /min Je Rodriguez CNP Work Phone: [facility] Work Phone: 02-06-2022 17:00-0400 Heart Rate Rhythm 1 1 Je Rodriguez CNP Work Phone: [facility] Work Phone: 02-06-2022 17:00-0400 SaO2% (BldA) [Mass fraction] 95 % Je Rodriguez CNP Work Phone: [facility] Work Phone: 02-06-2022 17:00-0400 Systolic blood pressure 122 mm[Hg] Jemin Rodriguez FENDER MECHANIC Work Phone: [facility] Work Phone: 01-20-2022 10:53-0400 Body height 156.21 cm Je Rodriguez CNP Work Phone: [facility] Work Phone: 01-20-2022 10:53-0400 Body mass index (BMI) [Ratio] 24.4 kg/m2 Je Rodriguez CNP Work Phone: [facility] Work Phone: 01-20-2022 10:53-0400 Body surface area Derived from formula 1.59 m2 Jemin Rodriguez CNP Work Phone: [facility] Work Phone: 01-20-2022 10:53-0400 Body temperature 97 [degF] Je Rodriguez CNP Work Phone: [facility] Work Phone: 01-20-2022 10:53-0400 Body weight 59.42 kg Jemin Rodriguez CNP Work Phone: [facility] Work Phone: 01-20-2022 10:53-0400 Diastolic blood pressure 82 mm[Hg] Je Rodriguez CNP Work Phone: [facility] Work Phone: 01-20-2022 10:53-0400 Heart rate 86 /min Je Rodriguez CNP Work Phone: [facility] Work Phone: 01-20-2022 10:53-0400 Heart Rate Rhythm 1 1 Je Rodriguez CNP Work Phone: [facility] Work Phone: 01-20-2022 10:53-0400 SaO2% (BldA) [Mass fraction] 96 % Je Rodriguez CNP Work Phone: [facility] Work Phone: 01-20-2022 10:53-0400 Systolic blood pressure 116 mm[Hg] Je Rodriguez CNP Work Phone: [facility] Work Phone: 01-06-2022 16:05-0400 Body height 156.21 cm Je Rodriguez CNP Work Phone: [facility] Work Phone: 01-06-2022 16:05-0400 Body mass index (BMI) [Ratio] 24.4 kg/m2 Je Rodriguez CNP Work Phone: [facility] Work Phone: 01-06-2022 16:05-0400 Body surface area Derived from formula 1.59 m2 Je Rodriguez CNP Work Phone: [facility] Work Phone: 01-06-2022 16:05-0400 Body temperature 98 [degF] Je Rodriguez CNP Work Phone: [facility] Work Phone: 01-06-2022 16:05-0400 Body weight 59.42 kg Je Rodriguez CNP Work Phone: [facility] Work Phone: 01-06-2022 16:05-0400 Diastolic blood pressure 88 mm[Hg] Je Rodriguez CNP Work Phone: [facility] Work Phone: 01-06-2022 16:05-0400 Heart rate 96 /min Je Rodriguez CNP Work Phone: [facility] Work Phone: 01-06-2022 16:05-0400 SaO2% (BldA) [Mass fraction] 97 % Je Rodriguez CNP Work Phone: [facility] Work Phone: 01-06-2022 16:05-0400 Systolic blood pressure 130 mm[Hg] Je Cruzer FENDER MECHANIC Work Phone: [facility] Work Phone: 12-23-2021 10:39-0400 Body height 156.21 cm rPiscilla Dash CNP Work Phone: [facility] Work Phone: 12-23-2021 10:39-0400 Body mass index (BMI) [Ratio] 24.7 kg/m2 Priscilla Dash CNP Work Phone: [facility] Work Phone: 12-23-2021 10:39-0400 Body surface area Derived from formula 1.6 m2 Priscilla Dash CNP Work Phone: [facility] Work Phone: 12-23-2021 10:39-0400 Body temperature 95.3 [degF] Priscilla Dash CNP Work Phone: [facility] Work Phone: 12-23-2021 10:39-0400 Body weight 60.33 kg Priscilla Dash CNP Work Phone: [facility] Work Phone: 12-23-2021 10:39-0400 Diastolic blood pressure 78 mm[Hg] Priscilla Dash CNP Work Phone: [facility] Work Phone: 12-23-2021 10:39-0400 Heart rate 72 /min Priscilla Dash CNP Work Phone: [facility] Work Phone: 12-23-2021 10:39-0400 SaO2% (BldA) [Mass fraction] 98 % Priscilla Dash CNP Work Phone: [facility] Work Phone: 12-23-2021 10:39-0400 Systolic blood pressure 130 mm[Hg] Priscilla Dash CNP Work Phone: [facility] Work Phone: 12-16-2021 13:25-0400 Body height 156.21 cm Priscilla Dash CNP Work Phone: [facility] Work Phone: 12-16-2021 13:25-0400 Body mass index (BMI) [Ratio] 24.9 kg/m2 Priscilla Dash CNP Work Phone: [facility] Work Phone: 12-16-2021 13:25-0400 Body surface area Derived from formula 1.6 m2 Priscilla Dash CNP Work Phone: [facility] Work Phone: 12-16-2021 13:25-0400 Body temperature 96.8 [degF] Priscilla Dash CNP Work Phone: [facility] Work Phone: 12-16-2021 13:25-0400 Body weight 60.69 kg Priscilla Dash CNP Work Phone: [facility] Work Phone: 12-16-2021 13:25-0400 Diastolic blood pressure 86 mm[Hg] Priscilla Dash CNP Work Phone: [facility] Work Phone: 12-16-2021 13:25-0400 Heart rate 80 /min Priscilla Dash CNP Work Phone: [facility] Work Phone: 12-16-2021 13:25-0400 Heart Rate Rhythm 1 1 Priscilla Dash CNP Work Phone: [facility] Work Phone: 12-16-2021 13:25-0400 SaO2% (BldA) [Mass fraction] 94 % Priscilla Dash [employer]CHAN[employer] Work Phone: [facility] Work Phone: 12-16-2021 13:25-0400 Systolic blood pressure 136 mm[Hg] Priscilla Dash FENDER MECHANIC Work Phone: [facility] Work Phone: 11-13-2021 17:56-0400 Diastolic blood pressure 86 mm[Hg] Mikayla Austin MD [facility] [employer] 11-13-2021 17:56-0400 Heart rate 88 /min Mikayla Austin MD [facility] [employer] 11-13-2021 17:56-0400 Respiratory rate 17 /min Mikayla Austin MD [facility] [employer] 11-13-2021 17:56-0400 SaO2% (BldA) [Mass fraction] 96 % Mikayla Austin MD [facility] [employer] 11-13-2021 17:56-0400 Systolic blood pressure 132 mm[Hg] Mikayla Austin MD [facility] [employer] [facility] [employer] 11-13-2021 17:53-0400 Body temperature 97.3 [degF] Mikayla Austin MD [facility] [employer] 11-03-2021 16:07-0400 Body height 156.21 cm Je Michael [facility] Work Phone: [facility] Work Phone: 11-03-2021 16:07-0400 Body mass index (BMI) [Ratio] 25.5 kg/m2 Je Michael [facility] Work Phone: [facility] Work Phone: 11-03-2021 16:07-0400 Body surface area Derived from formula 1.62 m2 Je Michael [employer] Work Phone: [facility] Work Phone: 11-03-2021 16:07-0400 Body temperature 97 [degF] Je Michael [employer] Work Phone: [facility] Work Phone: 11-03-2021 16:07-0400 Body weight 62.14 kg Je Rodriguez CNP Work Phone: [facility] Work Phone: 11-03-2021 16:07-0400 Diastolic blood pressure 78 mm[Hg] Je Rodriguez CNP Work Phone: [facility] Work Phone: 11-03-2021 16:07-0400 Heart rate 88 /min Je Rodriguez CNP Work Phone: [facility] Work Phone: 11-03-2021 16:07-0400 SaO2% (BldA) [Mass fraction] 98 % Je Rodriguez CNP Work Phone: [facility] Work Phone: 11-03-2021 16:07-0400 Systolic blood pressure 116 mm[Hg] Je Rodriguez CNP Work Phone: [facility] Work Phone: 10-20-2021 09:38-0400 Body height 156.21 cm Je Rodriguez CNP Work Phone: [facility] Work Phone: 10-20-2021 09:38-0400 Body mass index (BMI) [Ratio] 25.5 kg/m2 Je Rodriguez CNP Work Phone: [facility] Work Phone: 10-20-2021 09:38-0400 Body surface area Derived from formula 1.62 m2 Je Rodriguez CNP Work Phone: [facility] Work Phone: 10-20-2021 09:38-0400 Body temperature 97 [degF] Je Rodriguez CNP Work Phone: [facility] Work Phone: 10-20-2021 09:38-0400 Body weight 62.14 kg Je Rodriguez CNP Work Phone: [facility] Work Phone: 10-20-2021 09:38-0400 Diastolic blood pressure 78 mm[Hg] Je Rodriguez CNP Work Phone: [facility] Work Phone: 10-20-2021 09:38-0400 Heart rate 76 /min Je Rodriguez CNP Work Phone: [facility] Work Phone: 10-20-2021 09:38-0400 SaO2% (BldA) [Mass fraction] 97 % Je Rodriguez CNP Work Phone: [facility] Work Phone: 10-20-2021 09:38-0400 Systolic blood pressure 108 mm[Hg] Je Rodriguez CNP Work Phone: [facility] Work Phone: 10-06-2021 11:17-0400 Body height 156.21 cm Je Rodriguez CNP Work Phone: [facility] Work Phone: 10-06-2021 11:17-0400 Body mass index (BMI) [Ratio] 25.9 kg/m2 Je Rodriguez CNP Work Phone: [facility] Work Phone: 10-06-2021 11:17-0400 Body surface area Derived from formula 1.63 m2 Je Rodriguez CNP Work Phone: [facility] Work Phone: 10-06-2021 11:17-0400 Body temperature 97.6 [degF] Je Rodriguez CNP Work Phone: [facility] Work Phone: 10-06-2021 11:17-0400 Body weight 63.32 kg Je Rodriguez CNP Work Phone: [facility] Work Phone: 10-06-2021 11:17-0400 Diastolic blood pressure 84 mm[Hg] Je Rodriguez CNP Work Phone: [facility] Work Phone: 10-06-2021 11:17-0400 Heart rate 88 /min Je Rodriguez CNP Work Phone: [facility] Work Phone: 10-06-2021 11:17-0400 SaO2% (BldA) [Mass fraction] 98 % Je Rodriguez CNP Work Phone: [facility] Work Phone: 10-06-2021 11:17-0400 Systolic blood pressure 136 mm[Hg] Je Rodriguez CNP Work Phone: [facility] Work Phone: 09-30-2021 08:21-0400 Body height 156.21 cm Je Rodriguez CNP Work Phone: [facility] Work Phone: 09-30-2021 08:21-0400 Body mass index (BMI) [Ratio] 25.9 kg/m2 Je Rodriguez CNP Work Phone: [facility] Work Phone: 09-30-2021 08:21-0400 Body surface area Derived from formula 1.63 m2 Je Rodriguez CNP Work Phone: [facility] Work Phone: 09-30-2021 08:21-0400 Body temperature 96.8 [degF] Je Rodriguez CNP Work Phone: [facility] Work Phone: 09-30-2021 08:21-0400 Body weight 63.32 kg Je Rodriguez CNP Work Phone: [facility] Work Phone: 09-30-2021 08:21-0400 Diastolic blood pressure 84 mm[Hg] Je Rodriguez CNP Work Phone: [facility] Work Phone: 09-30-2021 08:21-0400 Heart rate 82 /min Je Rodriguez CNP Work Phone: [facility] Work Phone: 09-30-2021 08:21-0400 SaO2% (BldA) [Mass fraction] 98 % Je Rodriguez CNP Work Phone: [facility] Work Phone: 09-30-2021 08:21-0400 Systolic blood pressure 138 mm[Hg] Je Rodriguez CNP Work Phone: [facility] Work Phone: 09-27-2021 10:48-0400 Body height 156.21 cm Je Rodriguez CNP Work Phone: [facility] Work Phone: 09-27-2021 10:48-0400 Body mass index (BMI) [Ratio] 26.2 kg/m2 Je Rodriguez CNP Work Phone: [facility] Work Phone: 09-27-2021 10:48-0400 Body surface area Derived from formula 1.64 m2 Je Rodriguez CNP Work Phone: [facility] Work Phone: 09-27-2021 10:48-0400 Body temperature 97.4 [degF] Je Cruzer FENDER MECHANIC [facility] Work Phone: 09-27-2021 10:48-0400 Body weight 63.96 kg Je Rodriguez FENDER MECHANIC Work Phone: [facility] Work Phone: 09-27-2021 10:48-0400 Diastolic blood pressure 98 mm[Hg] Je Cruzer FENDER MECHANIC Work Phone: [facility] Work Phone: 09-27-2021 10:48-0400 Heart rate 91 /min Je Cruzer FENDER MECHANIC Work Phone: [facility] Work Phone: 09-27-2021 10:48-0400 SaO2% (BldA) [Mass fraction] 98 % Je Rodriguez FENDER MECHANIC Work Phone: [facility] Work Phone: 09-27-2021 10:48-0400 Systolic blood pressure 146 mm[Hg] Je Michael FENDER MECHANIC Work Phone: [facility] Work Phone: 09-22-2021 14:14-0400 Body temperature 98.2 [degF] Je Michael FENDER MECHANIC Work Phone: [facility] Work Phone: 09-22-2021 14:14-0400 Diastolic blood pressure 96 mm[Hg] Je Michael FENDER MECHANIC Work Phone: [facility] Work Phone: 09-22-2021 14:14-0400 Heart rate 94 /min Je Michael FENDER MECHANIC Work Phone: [facility] Work Phone: 09-22-2021 14:14-0400 SaO2% (BldA) [Mass fraction] 97 % Je Rodriguez CNP Work Phone: [facility] Work Phone: 09-22-2021 14:14-0400 Systolic blood pressure 134 mm[Hg] Je Rodriguez CNP Work Phone: [facility] Work Phone: 09-22-2021 14:00-0400 Body height 156.21 cm Je Rodriguez CNP Work Phone: [facility] Work Phone: 09-22-2021 14:00-0400 Body mass index (BMI) [Ratio] 25.9 kg/m2 Je Rodriguez CNP Work Phone: [facility] Work Phone: 09-22-2021 14:00-0400 Body surface area Derived from formula 1.63 m2 Je Rodriguez CNP Work Phone: [facility] Work Phone: 09-22-2021 14:00-0400 Body weight 63.23 kg Je Rodriguez CNP Work Phone: [facility] Work Phone: Encounters Encounter Date Encounter Type Care Provider Facility Start: 08-16-2023 End: 08-17-2023 Emergency department patient visit AMBER PATEL [facility] Start: 08-03-2023 End: 08-04-2023 Emergency department patient visit ANY VILLAR [facility] Start: 08-28-2022 End: 08-28-[address] IDANIA JORGE Facility: Start: 03-02-2022 End: 03-02-2022 General Lexy Llanos [facility] Work Phone: [facility] Work Phone: Start: 03-02-2022 End: 03-02-2022 ambulatory Brina Brothers [employer]AN[employer] Work Phone: [facility] Work Phone: Start: 02-06-2022 End: 02-06-2022 General Lexy Llanos [facility] Work Phone: [facility] Work Phone: Start: 02-06-2022 End: 02-06-2022 General Lexy Llanos [facility] Work Phone: [facility] Work Phone: Start: 02-06-2022 End: 02-06-2022 ambulatory Brina Brothers [employer] ME[employer]ANIC Work Phone: [facility] Work Phone: Start: 02-06-2022 End: 02-06-2022 General Je Michael FENDER MECHANIC Work Phone: [facility] Work Phone: Start: 01-20-2022 End: 01-20-2022 ambulatory Priscilla Hardy F[employer]ER MECHANIC Work Phone: [facility] Work Phone: Start: 01-06-2022 End: 01-06-2022 General Juliettehailey Agiular [employer] ANALYST Work Phone: [place] Work Phone: Start: 01-06-2022 End: 01-06-2022 ambulatory Je Cruzer F[employer]ER MECHANIC Work Phone: [facility] Work Phone: Start: 01-06-2022 End: 01-06-2022 General Juliette Colemanles GROUP CONTRACT ANALYST Work Phone: [facility] [place] Work Phone: Start: 01-06-2022 End: 01-07-2022 ambulatory JE RODRIGUEZ [facility] Start: 01-06-2022 End: 01-06-2022 Subsequent hospital visit by physician Luz Pennington MD Work Phone: [facility] Start: 12-23-2021 End: 12-23-2021 General Lexy Llanos [facility] Work Phone: [facility] Work Phone: Start: 12-23-2021 End: 12-23-2021 ambulatory Je Rodriguez F[employer]ER MECHANIC Work Phone: [facility] Work Phone: Start: 12-20-2021 End: 12-20-2021 General Cassidy Hester [facility] Work Phone: [facility] Work Phone: Start: 12-16-2021 End: 12-16-2021 General Cassidy Hester [facility]PC[facility] Work Phone: [facility] Work Phone: Start: 12-16-2021 End: 12-16-2021 ambulatory Priscilla Dash [employer] MECHANIC Work Phone: [facility] Work Phone: Start: 11-13-2021 End: 11-13-2021 [facility] Start: 11-13-[facility]21 End: 11-13-2021 Emergency department patient visit Mikayla Austin MD [facility] ED Comment on above: Injury of buttock, i nitial encounter (Primary Dx) Start: 11-03-2021 End: 11-03-2021 General Lexy Llanos [facility] Work Phone: [facility] Work Phone: Start: 11-03-2021 End: 11-03-2021 ambulatory Je Rodriguez FENDER MECHANIC Work Phone: [facility] Work Phone: Start: 10-20-2021 End: 10-20-2021 General Lexy Llanos [facility] Work Phone: [facility] Work Phone: Start: 10-20-2021 End: 10-20-2021 ambulatory Je Rodriguez F[employer]ER MECHANIC Work Phone: [facility] Work Phone: Start: 10-06-2021 End: 10-06-2021 FQHC visit, estab pt Cassidy Hester [facility] Work Phone: [facility] Work Phone: Start: 10-06-2021 End: 10-06-2021 FQHC visit, estab pt Cassidy Huertaerson [facility] Work Phone: [facility] Work Phone: Start: 10-06-2021 End: 10-06-2021 ambulatory Brina Brothers FENDER MECHANIC Work Phone: [facility] Work Phone: Start: 09-30-2021 End: 09-30-2021 General Lexy Llanos [facility] Work Phone: [facility] Work Phone: Start: 09-30-2021 End: 09-30-2021 General Lexy Llanos [facility] Work Phone: [facility] Work Phone: Start: 09-30-2021 End: 09-30-2021 ambulatory Brina Villelaen FENDER MECHANIC Work Phone: [facility] Work Phone: Start: 09-27-2021 End: 09-27-2021 General Lexy Llanos [facility] Work Phone: [facility] Work Phone: Start: 09-27-2021 End: 09-27-2021 ambulatory Je Rodriguez FENDER MECHANIC Work Phone: [facility] Work Phone: Start: 09-22-2021 End: 09-22-2021 FQ visit, estab pt [facility] Work Phone: [facility] Work Phone: Start: 09-22-2021 End: 09-22-2021 FQ visit new patient Je Rodriguez FENDER MECHANIC Work Phone: [facility] Work Phone: Start: 09-01-2021 End: 09-01-[address] LUZ PENNINGTON . Facility: Procedures Date Procedure Procedure Detail Performing Clinician Start: 03-02-2022 Current tobacco smoker Brina Brothers [employer] MECHANIC Work Phone: Start: 03-02-2022 Drug test prsmv read direct optical obs pr date Brina Brothers CNP Work Phone: Start: 03-02-2022 Most recent diastoli c blood pressure < 80 mm hg Brina Brothers FENDER MECHANIC Work Phone: Start: 03-02-2022 Most recent systolic blood pressure <130 mm hg Brina Brothers FENDER MECHANIC Work Phone: Start: 03-02-2022 Psychotherapy w/jaye ent 30 minutes Lexy Llanos [facility] Work Phone: Start: 03-02-2022 Pt scrnd tobacco use rcvd tobacco cessation talk Brina Brothers CNP Work Phone: Start: 02-06-2022 Current tobacco smoker Brina Brothers FENDER MECHANIC Work Phone: Start: 02-06-2022 Drug test prsmv read direct optical obs pr date Brina Brothers CNP Work Phone: Start: 02-06-2022 Most recent diastoli c blood pressure < 80 mm hg Brina Brothers FENDER MECHANIC Work Phone: Start: 02-06-2022 Most recent systolic blood pressure <130 mm hg Brina Brothers FENDER MECHANIC Work Phone: Start: 02-06-2022 Psychotherapy w/jaye ent 30 minutes Lexy Llanos [facility] Work Phone: Start: 02-06-2022 Pt scrnd tobacco use rcvd tobacco cessation talk Brina Brothers FENDER MECHANIC Work Phone: Start: 02-06-2022 Urnls dip stick/tabl et rgnt non-auto w/o micrscp Brina Brothers F[employer]ER MECHANIC Work Phone: Start: 01-20-2022 Drug test prsmv read direct optical obs pr date Priscilla Dash FENDER MECHANIC Work Phone: Start: 01-20-2022 Most recent diastoli c blood pressure 80-89 mm hg Brina Brothers FENDER MECHANIC Work Phone: Start: 01-20-2022 Most recent systolic blood pressure <130 mm hg Brina Brothers FENDER MECHANIC Work Phone: Start: 01-20-2022 Pt scrnd tobacco use rcvd tobacco cessation talk Brina Brothers FENDER MECHANIC Work Phone: Start: 01-06-2022 Current tobacco smoker Je Rodriguez FENDER MECHANIC Work Phone: Start: 01-06-2022 Drug test prsmv read direct optical obs pr date Je Cruzer FENDER MECHANIC Work Phone: Start: 01-06-2022 Most recent diastoli c blood pressure 80-89 mm hg Je Cruzer FENDER MECHANIC Work Phone: Start: 01-06-2022 Most recent systolic blood pressure <130 mm hg Je Michael F[employer] MECHANIC Work Phone: Start: 01-06-2022 Psychotherapy w/jaye ent 30 minutes Juliette SCHULZW Work Phone: Start: 01-06-2022 Pt scrnd tobacco use rcvd tobacco cessation talk Juliette ESCOBEDO Work Phone: Start: 01-06-2022 Urinalysis microscopic only Je Rodriguez [employer]ITORY SUPERVISOR [employer] Work Phone: Start: 01-06-2022 Urnls dip stick/tabl et rgnt auto w/o microscopy Je Rodriguez TERRITORY SUPERVISOR - [employer] Work Phone: Start: 12-23-2021 Current tobacco smoker Je Rodriguez FENDER MECHANIC Work Phone: Start: 12-23-2021 Drug test prsmv read direct optical obs pr date Je Rodriguez FENDER MECHANIC Work Phone: Start: 12-23-2021 Most recent diastoli c blood pressure < 80 mm hg Je Cruzer FENDER MECHANIC Work Phone: Start: 12-23-2021 Most recent systolic blood press 130-139mm hg Je Cruzer FENDER MECHANIC Work Phone: Start: 12-23-2021 Psychotherapy w/jaye ent 30 minutes Lexy Llanos [facility] Work Phone: Start: 12-23-2021 Pt scrnd tobacco use rcvd tobacco cessation talk Je Rodriguez FENDER MECHANIC Work Phone: Start: 12-16-2021 Drug test prsmv read direct optical obs pr date Priscilla Dash FENDER MECHANIC Work Phone: Start: 12-16-2021 Most recent diastoli c blood pressure 80-89 mm hg Priscilla Dash FENDER MECHANIC Work Phone: Start: 12-16-2021 Most recent systolic blood press 130-139mm hg Priscilla Dash FENDER MECHANIC Work Phone: Start: 12-16-2021 Psychotherapy w/jaye ent 30 minutes Cassidy Hester [facility] Work Phone: Start: 11-03-2021 Current tobacco smoker Je Rodriguez FENDER MECHANIC Work Phone: Start: 11-03-2021 Drug test prsmv read direct optical obs pr date Je Michael FENDER MECHANIC Work Phone: Start: 11-03-2021 Most recent diastoli c blood pressure < 80 mm hg Je Rodriguez CNP Work Phone: Start: 11-03-2021 Most recent systolic blood pressure <130 mm hg Je Rodriguez CNP Work Phone: Start: 11-03-2021 Psychotherapy w/jaye ent 30 minutes Lexy Llanos [facility] Work Phone: Start: 11-03-2021 Pt scrnd tobacco use rcvd tobacco cessation talk Je Rodriguez CNP Work Phone: Start: 10-20-2021 Drug test prsmv read direct optical obs pr date Je Rodriguez CNP Work Phone: Start: 10-20-2021 Most recent diastoli c blood pressure < 80 mm hg Je Rodriguez CNP Work Phone: Start: 10-20-2021 Most recent systolic blood pressure <130 mm hg Je Rodriguez CNP Work Phone: Start: 10-06-2021 Current tobacco smoker Brina Brothers CNP Work Phone: Start: 10-06-2021 Drug test prsmv read direct optical obs pr date Brina Brothers CNP Work Phone: Start: 10-06-2021 Most recent diastoli c blood pressure 80-89 mm hg Brina Brothers CNP Work Phone: Start: 10-06-2021 Most recent systolic blood press 130-139mm hg Brina Brothers CNP Work Phone: Start: 10-06-2021 Psychotherapy w/jaye ent 30 minutes Cassidy Hester [facility] Work Phone: Start: 10-06-2021 Pt scrnd tobacco use rcvd tobacco cessation talk Brina Brothers CNP Work Phone: Start: 09-30-2021 Drug test prsmv read direct optical obs pr date Brina Brothers FENDER MECHANIC Work Phone: Start: 09-30-2021 Most recent diastoli c blood pressure 80-89 mm hg Brina Brothers FENDER MECHANIC Work Phone: Start: 09-30-2021 Most recent systolic blood press 130-139mm hg Brina Brothers FENDER MECHANIC Work Phone: Start: 09-30-2021 Psychotherapy w/jaye ent 30 minutes Lexy Llanos [facility] Work Phone: Start: 09-27-2021 Drug test prsmv read direct optical obs pr date Je Cruzer FENDER MECHANIC Work Phone: Start: 09-27-2021 Most recent diastol blood pres >/equal 90 mm hg Je Michael FENDER MECHANIC Work Phone: Start: 09-27-2021 Most recent systolic blood press 130-139mm hg Je Michael FENDER MECHANIC Work Phone: Start: 09-27-2021 Psychotherapy w/jaye ent 30 minutes Lexy Llanos [facility] Work Phone: Start: 09-22-2021 Drug test prsmv read direct optical obs pr date Je Cruzer FENDER MECHANIC Work Phone: Start: 09-22-2021 Hemoglobin glycosylated a1c Je Michael FENDER MECHANIC Work Phone: Start: 09-22-2021 Most recent diastol blood pres >/equal 90 mm hg Je Michael FENDER MECHANIC Work Phone: Start: 09-22-2021 Most recent systolic blood press 130-139mm hg Je Michael FENDER MECHANIC Work Phone: Start: 09-22-2021 Psychotherapy w/jaye ent 30 minutes Lexy Llanos [facility] Work Phone: Start: 09-22-2021 Surgical procedure Kianna copeland Michael FENDER MECHANIC Work Phone: Start: 09-22-2021 Tonsillectomy Je beauchamp FENDER MECHANIC Work Phone: Plan of Treatment Date Care Activity Detail Author Start: 06-14-2027 DTaP/Tdap/Td vaccine (2 - Td or Tdap) DTaP/Tdap/Td vaccine (2 - Td or Tdap) [facility] Start: 03-16-2022 Medical Substa nce Abuse [facility] Work Phone: Start: 02-22-2022 Medical Substa nce Abuse [facility] Work Phone: Start: 02-09-2022 Influenza vaccination [facility] Start: 02-05-2022 [facility] Start: 02-02-2022 Medical Substa nce Abuse [facility] Work Phone: Start: 01-19-2022 Medical Substa nce Abuse [facility] Work Phone: Start: 01-06-2022 Medical Substa nce Abuse [facility] Work Phone: Start: 12-23-2021 Medical Substa nce Abuse [facility] Work Phone: Start: 11-11-2021 Medical Substa nce Abuse [facility] Work Phone: Start: 11-03-2021 Medical Substa nce Abuse [facility] Work Phone: Start: 10-06-2021 Medical Substa nce Abuse [facility] Work Phone: Start: 10-05-2021 CBC panel - Blood by Automated count [facility] Start: 09-30-2021 Medical Substa nce Abuse [facility] Work Phone: Start: 09-27-2021 Medical Substa nce Abuse [facility] Work Phone: Start: 1985 COVID-19 Vaccine (1) COVID-19 Vaccin e (1) [facility] Start: 04-16-1981 COVID-19 Vaccine (#1) COVID-19 Vacci ne (#1) [facility] [employer] End: 01-06-2022 C.trachomatis N.gonorrhoeae DNA, Urine [facility] [employer] [facility] Work Phone: Comment on above: Once for 1 Occurrenc es starting 01/06/2022 until 01/06/2022 End: 01-06-2022 Trichomonas Vaginali, Molecular [facility] Work Phone: Comment on above: Once for 1 Occurrenc es starting 01/06/2022 until 01/06/2022 Immunizations Immunization Date Immunization Notes Care Provider Tyra patricio 06-14-2017 tetanus toxoid, redu pat diphtheria toxoid, and acellular pertussis vaccine, adsorbed Brina Brothers FENDER MECHANIC Work Phone: [facility] Work Phone: Payers Date Payer Category Payer Unknown [id number] [id number] 1980 Unknown [id number] 1980 Unknown [id number] 1980 Unknown [id number] 1980 Unknown [id number] [id number] [id number] 1980 Unknown [id number] [id number] 1980 Unknown [id number] [id number] [id number] 1959 Private Health Insurance [id number] Social History Date Type Detail Facility Tobacco smoking status Unknown if ever smoked [facility] Work Phone: Assertion [facility] (finding) [facility] Work Phone: Assertion Finding of alcoh ol intake (finding) [facility] Work Phone: Assertion Sexually active (finding) [facility] Work Phone: Assertion [facility] Work Phone: Assertion Cigarette smoker (finding) [facility] Work Phone: Assertion Smoker (finding) [facility] Work Phone: Assertion Gender identity finding (finding) [facility] Work Phone: Assertion Light cigarette smoker (1-9 cigs/day) (finding) [facility] Work Phone: Assertion Exposure to poll ution (event) [facility] Work Phone: Assertion Finding of sexua l orientation (finding) [facility] Work Phone: Assertion Interpersonal relationship finding (finding) [facility] Work Phone: Start: 10-12-2015 Tobacco smoking status NHIS Smokes tobacco daily [employer] Phone: Start: 10-12-2015 Cigarettes smoked current (pack per day) - Reported 0.5 [employer] Phone: Start: 10-12-2015 Alcohol intake Current non-dr medical assistant float of alcohol (finding) [employer] Phone: Start: 1980 Sex Assigned At Not on file [facility] [employer] Phone: Start: 11-03-2021 End: 11-13-2021 Exposure to SARS-CoV-2 (event) Not sure [employer] Assertion Social drinker (finding) [facility] Work Phone: Assertion Family problems (finding) [facility] Work Phone: Assertion Moderate cigaret te smoker (10-19 cigs/day) (finding) [facility] Work Phone: Assertion Heavy cigarette smoker (20-39 cigs/day) (finding) [facility] Work Phone: NEGATED: Highlighted row Assertion Exposure to pollution (event) [facility] Work Phone: NEGATED: Highlighted row Assertion Tobacco user (finding) [facility] Work Phone: NEGATED: Highlighted row Assertion Not a current tobacco user [facility] Work Phone: NEGATED: Highlighted row Assertion Finding relating to drug misuse behavior (finding) [facility] Work Phone: NEGATED: Highlighted row Assertion Current drinker of alcohol (finding) [facility] Work Phone: Mental Status Date Assessment Result Facility Cognitive function Cognitive fun ctioning was normal Cognitive function finding (finding) [facility] Work Phone: Clinical Notes 09-22-2021 to 03-02-2022 Note Date & Type Note Facility 03-02-2022 Evaluation note Includes: Assessments for all patient encounters Findings Chronic post-traumatic stres s disorder Substance Abuse with Lexy Llanos [facility] 03/02/2022 Opioid dependence uncomplicated Subst ance Abuse with Lexy Llanos [facility] 03/02/2022 Z68.25 - Body mass index [BM I] 25.0-25.9, adult Medical Substance Abuse with Brina Brothers CNP 03/02/2022 Chronic post-traumatic stres s disorder Substance Abuse with Lexy Llanos [facility] 02/06/2022 Opioid dependence uncomplicated Subst ance Abuse with Lexy Llanos [facility] 02/06/2022 Z68.24 - Body mass index [BM I] 24.0-24.9, adult Medical Substance Abuse with Brina Brothers FENDER MECHANIC 02/06/2022 Chronic post-traumatic stres s disorder Medical Substance Abuse with Priscilla Dash FENDER MECHANIC 01/20/2022 Nicotine dependence Medical Substance Ab use with Priscilla Dash FENDER MECHANIC 01/20/2022 Opioid dependence uncomplicated Medical Substance Abuse with Priscilla Dash FENDER MECHANIC 01/20/2022 Z68.24 - Body mass index [BM I] 24.0-24.9, adult Medical Substance Abuse with Priscilla Dash FENDER MECHANIC 01/20/2022 Dependence on nicotine in cigarettes - uncomplicated BH Substance Abuse with Juliette Jeff GROUP CONTRACT ANALYST 01/06/2022 Opioid dependence uncomplicated BH Subst ance Abuse with Juliette [place] GROUP CONTRACT ANALYST 01/06/2022 Assessment of body mass inde x [Body mass index [BMI] 24.0-24.9, adult] Medical Substance Abuse with Je Michael FENDER MECHANIC 01/06/2022 Opioid dependence uncomplicated Medical Substance Abuse with Je Michael FENDER MECHANIC 01/06/2022 Chronic post-traumatic stres s disorder BH Substance Abuse with Lexy Llanos [facility] 12/23/2021 Opioid dependence uncomplicated BH Subst ance Abuse with Lexy Llanos [facility] 12/23/2021 Assessment of body mass inde x [Body mass index [BMI] 24.0-24.9, adult] Medical Substance Abuse with Je Michael FENDER MECHANIC 12/23/2021 Chronic post-traumatic stres s disorder Medical Substance Abuse with Je Michael FENDER MECHANIC 12/23/2021 Opioid dependence uncomplicated Medical Substance Abuse with Je Michael FENDER MECHANIC 12/23/2021 Opioid dependence BH Substance Abuse w ith Cassidy Hester [facility] 12/16/2021 Opioid dependence, on agonis t therapy BH Substance Abuse with Cassidy Hester [facility] 12/16/2021 Assessment of body mass index Medical Kat bstance Abuse with Priscilla Dash FENDER MECHANIC 12/16/2021 Dependence on nicotine in cigarettes - uncomplicated Medical Substance Abuse with Priscilla Dash FENDER MECHANIC 12/16/2021 Opioid dependence uncomplicated Medical Substance Abuse with Priscilla Dash FENDER MECHANIC 12/16/2021 Opioid dependence uncomplicated BH Subst ance Abuse with Lexy Llanos [facility] 11/03/2021 Assessment of body mass inde x [Body mass index [BMI] 25.0-25.9, adult] Medical Substance Abuse with Je Michael FENDER MECHANIC 11/03/2021 Opioid dependence uncomplicated BH Subst ance Abuse with Lexy Llanos [facility] 10/20/2021 Assessment of body mass inde x [Body mass index [BMI] 25.0-25.9, adult] Medical Substance Abuse with Je Michael FENDER MECHANIC 10/20/2021 Opioid dependence uncomplicated Medical Substance Abuse with Je Michael FENDER MECHANIC 10/20/2021 Opioid dependence uncomplicated BH Estab lished Patient with Cassidy Hester [facility] 10/06/2021 Z68.25 - Body mass index [BM I] 25.0-25.9, adult Medical Substance Abuse with Brina Zev FENDER MECHANIC 10/06/2021 Opioid dependence uncomplicated BH Subst ance Abuse with Lexy Llanos [facility] 09/30/2021 Z68.25 - Body mass index [BM I] 25.0-25.9, adult Medical Substance Abuse with Brina Zev FENDER MECHANIC 09/30/2021 Opioid dependence uncomplicated BH Subst ance Abuse with Lexy Llanos [facility] 09/27/2021 Assessment of body mass inde x [Body mass index [BMI] 26.0-26.9, adult] Medical Substance Abuse with Je Michael FENDER MECHANIC 09/27/2021 Opioid dependence uncomplicated Medical Substance Abuse with Je Michael FENDER MECHANIC 09/27/2021 Alcohol abuse - uncomplicated BH Establi shed Patient with Lexy Llanos [facility] 09/22/2021 Opioid dependence uncomplicated BH Estab lished Patient with Lexy Llanos [facility] 09/22/2021 Uncomplicated cocaine abuse Establish ed Patient with Lexy Llanos [facility] 09/22/2021 Assessment of body mass inde x [Body mass index [BMI] 25.0-25.9, adult] Medical New Patient with Je Michael FENDER MECHANIC 09/22/2021 Diabetes Risk Test Score was three score 09/22/2021 Medical New Patient with Je Michael FENDER MECHANIC 09/22/2021 Screening for Hep C Medical New Patient with Je Michael FENDER MECHANIC 09/22/2021 Screening for HIV Medical New Patient with Je Michael FENDER MECHANIC 09/22/2021 [facility] Work Phone: [phone]) 950-476808-29-2022 Evaluation note Includes: Assessments for all patient encounters Findings Encounter Date Chronic post-traumatic stress disorder B H Substance Abuse with Lexy Llanos [facility] 02/06/2022 Opioid dependence uncomplicated BH Subst ance Abuse with Lexy Llanos [facility] 02/06/2022 Z68.24 - Body mass index [BM I] 24.0-24.9, adult Medical Substance Abuse with Brina Brothers [employer] 02/06/2022 Chronic post-traumatic stress disorder M edical Substance Abuse with Priscilla Dash [employer] 01/20/2022 Nicotine dependence Medical Substance Ab use with Priscilla Dash [employer] 01/20/2022 Opioid dependence uncomplicated Medical Substance Abuse with Priscilla Dash [employer] 01/20/2022 Z68.24 - Body mass index [BM I] 24.0-24.9, adult Medical Substance Abuse with Priscilla Dash [employer] 01/20/2022 Dependence on nicotine in ci garettes - uncomplicated BH Substance Abuse with Juliette [place] [employer] 01/06/2022 Opioid dependence uncomplicated BH Subst ance Abuse with Juliette [place] [employer] 01/06/2022 Assessment of body mass inde x [Body mass index [BMI] 24.0-24.9, adult] Medical Substance Abuse with Je Michael [employer] 01/06/2022 Opioid dependence uncomplicated Medical Substance Abuse with Je Michael [employer] 01/06/2022 Chronic post-traumatic stress disorder B [facility] 12/23/2021 Opioid dependence uncomplicated BH Subst [facility]ce [facility] 12/23/2021 Assessment of body mass inde x [Body mass index [BMI] 24.0-24.9, adult] Medical Substance Abuse with Je Michael [employer] 12/23/2021 Chronic post-traumatic stress disorder M edical Substance Abuse with Je Michael [employer] 12/23/2021 Opioid dependence uncomplicated Medical Substance Abuse with Je Michael [employer] 12/23/2021 Opioid dependence BH Substance Abuse w debi Cassidy Hester [facility] 12/16/2021 Opioid dependence, on agonist therapy BH [facility] 12/16/2021 Assessment of body mass index Medical Kat bstance Abuse with Priscilla Dash [employer] 12/16/2021 Dependence on nicotine in ci garettes - uncomplicated Medical Substance Abuse with Priscilla Dash [employer] 12/16/2021 Opioid dependence uncomplicated Medical Substance Abuse with Priscilla Dash [employer] 12/16/2021 Opioid dependence uncomplicated BH Subst ance Abuse with Lexy Llanos [facility] 11/03/2021 Assessment of body mass inde x [Body mass index [BMI] 25.0-25.9, adult] Medical Substance Abuse with Je Michael [employer] 11/03/2021 Opioid dependence uncomplicated BH Subst ance Abuse with Lexy Llanos [facility] 10/20/2021 Assessment of body mass inde x [Body mass index [BMI] 25.0-25.9, adult] Medical Substance Abuse with Je Michael [employer] 10/20/2021 Opioid dependence uncomplicated Medical Substance Abuse with Je Michael [employer] 10/20/2021 Opioid dependence uncomplicated BH Estab lished Patient with Cassidy Hester [facility] 10/06/2021 Z68.25 - Body mass index [BM I] 25.0-25.9, adult Medical Substance Abuse with Brina Zev [employer] 10/06/2021 Opioid dependence uncomplicated BH Subst ance Abuse with Lexy Llanos [facility] 09/30/2021 Z68.25 - Body mass index [BM I] 25.0-25.9, adult Medical Substance Abuse with Brina Zev [employer] 09/30/2021 Opioid dependence uncomplicated BH Subst ance Abuse with Lexy Llanos [facility] 09/27/2021 Assessment of body mass inde x [Body mass index [BMI] 26.0-26.9, adult] Medical Substance Abuse with Je Michael [employer] 09/27/2021 Opioid dependence uncomplicated Medical Substance Abuse with Je Michael [employer] 09/27/2021 Alcohol abuse - uncomplicated BH Establi shed Patient with Lexy Llanos [facility] 09/22/2021 Opioid dependence uncomplicated BH Estab lished Patient with Lexy Llanos [facility] 09/22/2021 Uncomplicated cocaine abuse BH Establish ed Patient with Lexy Llanos [facility] 09/22/2021 Assessment of body mass inde x [Body mass index [BMI] 25.0-25.9, adult] Medical New Patient with Je Michael [employer] 09/22/2021 Diabetes Risk Test Score was three score 09/22/2021 Medical New Patient with Je Rodriguez [employer] 09/22/2021 Screening for Hep C Medical New Patient with Je Michael [employer] 09/22/2021 Screening for HIV Medical New Patient with Je Michael [employer]CH[employer]IC 09/22/2021 [facility] Work Phone: 1(202) 818-960708-12-2022 Evaluation note Includes: Assessments for all patient encounters Findings Encounter Date Chronic post-traumatic stress disorder M edical Substance Abuse with Priscilla Dash [employer] 01/20/2022 Nicotine dependence Medical Substance Ab use with Priscilla Dash [employer] 01/20/2022 Opioid dependence uncomplicated Medical Substance Abuse with Priscilla Dash [employer] 01/20/2022 Z68.24 - Body mass index [BM I] 24.0-24.9, adult Medical Substance Abuse with Priscillalala Dash [employer]IC 01/20/2022 Dependence on nicotine in ci garettes - uncomplicated BH Substance Abuse with Juliette [place] [employer] 01/06/2022 Opioid dependence uncomplicated BH Subst ance Abuse with Juliette [place] [employer]LY[employer] 01/06/2022 Assessment of body mass inde x [Body mass index [BMI] 24.0-24.9, adult] Medical Substance Abuse with Je Michael [employer] 01/06/2022 Opioid dependence uncomplicated Medical Substance Abuse with Je Michael [employer]CH[employer]IC 01/06/2022 Chronic post-traumatic stress disorder B H Substance Abuse with Lexy Llanos [facility] 12/23/2021 Opioid dependence uncomplicated BH Subst ance Abuse with Lexy Llanos [facility] 12/23/2021 Assessment of body mass inde x [Body mass index [BMI] 24.0-24.9, adult] Medical Substance Abuse with Je Michael [employer] 12/23/2021 Chronic post-traumatic stress disorder M edical Substance Abuse with Je Michael [employer] 12/23/2021 Opioid dependence uncomplicated Medical Substance Abuse with Je Michael [employer] 12/23/2021 Opioid dependence BH Substance Abuse w debi Hester [facility] 12/16/2021 Opioid dependence, on agonist therapy BH Substance Abuse with Cassidy Hester [facility] 12/16/2021 Assessment of body mass index Medical Kat bstance Abuse with Priscilla Dash [employer] 12/16/2021 Dependence on nicotine in ci garettes - uncomplicated Medical Substance Abuse with Priscilla Hardy [employer] 12/16/2021 Opioid dependence uncomplicated Medical Substance Abuse with Priscilla Hardy [employer] 12/16/2021 Opioid dependence uncomplicated BH Subst ance Abuse with Lexy Llanos [facility] 11/03/2021 Assessment of body mass inde x [Body mass index [BMI] 25.0-25.9, adult] Medical Substance Abuse with Je Michael [employer]IC 11/03/2021 Opioid dependence uncomplicated BH Subst ance Abuse with Lexy Llanos [facility] 10/20/2021 Assessment of body mass inde x [Body mass index [BMI] 25.0-25.9, adult] Medical Substance Abuse with Je Michael [employer]IC 10/20/2021 Opioid dependence uncomplicated Medical Substance Abuse with Je Michael [employer]IC 10/20/2021 Opioid dependence uncomplicated BH Estab lished Patient with Cassidy Hester [facility] 10/06/2021 Z68.25 - Body mass index [BM I] 25.0-25.9, adult Medical Substance Abuse with Brina Zev [employer]IC 10/06/2021 Opioid dependence uncomplicated BH Subst ance Abuse with Lexy Llanos [facility] 09/30/2021 Z68.25 - Body mass index [BM I] 25.0-25.9, adult Medical Substance Abuse with Brina Zev [employer]IC 09/30/2021 Opioid dependence uncomplicated BH Subst ance Abuse with Lexy Llanos [facility] 09/27/2021 Assessment of body mass inde x [Body mass index [BMI] 26.0-26.9, adult] Medical Substance Abuse with Je Michael [employer] 09/27/2021 Opioid dependence uncomplicated Medical Substance Abuse with Je Michael [employer]CH[employer]IC 09/27/2021 Alcohol abuse - uncomplicated BH Establi shed Patient with Lexy Llanos [facility] 09/22/2021 Opioid dependence uncomplicated BH Estab lished Patient with Lexy Llanos [facility] 09/22/2021 Uncomplicated cocaine abuse BH Establish ed Patient with Lexy Llanos [facility] 09/22/2021 Assessment of body mass inde x [Body mass index [BMI] 25.0-25.9, adult] Medical New Patient with Je Michael [employer] 09/22/2021 Diabetes Risk Test Score was three score 09/22/2021 Medical New Patient with Je Michael [employer]IC 09/22/2021 Screening for Hep C Medical New Patient with Je Michael [employer] 09/22/2021 Screening for HIV Medical New Patient with Je Michael F[employer]ER MECHANIC 09/22/2021 [facility] Work Phone: [phone]) [phone] Evaluation note Includes: Assessments for all patient encounters Findings Encounter Date Dependence on nicotine in ci garettes - uncomplicated BH Substance Abuse with Juliette [place] [employer] 01/06/2022 Opioid dependence uncomplicated BH Subst ance Abuse with Juliette [place] [employer]LYST 01/06/2022 Assessment of body mass inde x [Body mass index [BMI] 24.0-24.9, adult] Medical Substance Abuse with Je Michael [employer]CH[employer]IC 01/06/2022 Chronic post-traumatic stress disorder B H Substance Abuse with Lexy Llanos [facility] 12/23/2021 Opioid dependence uncomplicated BH Subst ance Abuse with Lexy Llanos [facility] 12/23/2021 Assessment of body mass inde x [Body mass index [BMI] 24.0-24.9, adult] Medical Substance Abuse with Je Michael [employer]IC 12/23/2021 Chronic post-traumatic stress disorder M edical Substance Abuse with Je Michael [employer]CHANIC 12/23/2021 Opioid dependence uncomplicated Medical Substance Abuse with Je Michael [employer]CH[employer]IC 12/23/2021 Opioid dependence BH Substance Abuse w debi Hester [facility] 12/16/2021 Opioid dependence, on agonist therapy BH [facility] 12/16/2021 Assessment of body mass index Medical Kat bstance Abuse with Priscilla Dash [employer] 12/16/2021 Dependence on nicotine in ci garettes - uncomplicated Medical Substance Abuse with Priscilla Dash [employer] 12/16/2021 Opioid dependence uncomplicated Medical Substance Abuse with Priscilla Dash [employer] 12/16/2021 Opioid dependence uncomplicated BH Subst ance Abuse [facility] 11/03/2021 Assessment of body mass inde x [Body mass index [BMI] 25.0-25.9, adult] Medical Substance Abuse with Je Michael [employer]CH[employer]IC 11/03/2021 Opioid dependence uncomplicated BH Subst ance Abuse [facility] 10/20/2021 Assessment of body mass inde x [Body mass index [BMI] 25.0-25.9, adult] Medical Substance Abuse with Je Michael [employer]CH[employer]IC 10/20/2021 Opioid dependence uncomplicated Medical Substance Abuse with Je Michael F[employer]ER MECHANIC 10/20/2021 Opioid dependence uncomplicated BH Estab lished Patient with Cassidy Huertaerson [facility] 10/06/2021 Z68.25 - Body mass index [BM I] 25.0-25.9, adult Medical Substance Abuse with Brina Zev [employer]CH[employer]IC 10/06/2021 Opioid dependence uncomplicated BH Subst ance Abuse with Lexy Llanos [facility] 09/30/2021 Z68.25 - Body mass index [BM I] 25.0-25.9, adult Medical Substance Abuse with Brina Zev [employer]IC 09/30/2021 Opioid dependence uncomplicated BH Subst ance Abuse with Lexy Llanos [facility] 09/27/2021 Assessment of body mass inde x [Body mass index [BMI] 26.0-26.9, adult] Medical Substance Abuse with Je Michael [employer]CH[employer]IC 09/27/2021 Opioid dependence uncomplicated Medical Substance Abuse with Je Michael [employer]CH[employer]IC 09/27/2021 Alcohol abuse - uncomplicated BH Establi shed Patient with Lexy Llanos [facility] 09/22/2021 Opioid dependence uncomplicated BH Estab lished Patient with Lexy Llanos [facility] 09/22/2021 Uncomplicated cocaine abuse BH Establish ed Patient with Lexy Llanos [facility] 09/22/2021 Assessment of body mass inde x [Body mass index [BMI] 25.0-25.9, adult] Medical New Patient with Je Michael [employer]IC 09/22/2021 Diabetes Risk Test Score was three score 09/22/2021 Medical New Patient with Je Michael [employer]CH[employer]IC 09/22/2021 Screening for Hep C Medical New Patient with Je Michael [employer]CH[employer]IC 09/22/2021 Screening for HIV Medical New Patient with Je Michael F[employer]ER MECHANIC 09/22/2021 [facility] Work Phone: 1([phone]) 280-118107-15-2022 Evaluation note Includes: Assessments for all patient encounters Findings Encounter Date Chronic post-traumatic stress disorder B H Substance Abuse with Lexy Llanos [facility] 12/23/2021 Opioid dependence uncomplicated BH Subst ance Abuse with Lexy Llanos [facility] 12/23/2021 Assessment of body mass inde x [Body mass index [BMI] 24.0-24.9, adult] Medical Substance Abuse with Je Michael [employer]CH[employer]IC 12/23/2021 Chronic post-traumatic stress disorder M edical Substance Abuse with Je Michael [employer]CHANIC 12/23/2021 Opioid dependence uncomplicated Medical Substance Abuse with Je Michael [employer] MECHANIC 12/23/2021 Opioid dependence BH Substance Abuse w ith Cassidy Hester [facility] 12/16/2021 Opioid dependence, on agonist therapy BH Substance Abuse with Cassidy eHster [facility] 12/16/2021 Assessment of body mass index Medical Kat bstance Abuse with Priscilla Dash [employer]IC 12/16/2021 Dependence on nicotine in ci garettes - uncomplicated Medical Substance Abuse with Priscilla Dash [employer] MECHANIC 12/16/2021 Opioid dependence uncomplicated Medical Substance Abuse with Priscilla Dash [employer]CH[employer]IC 12/16/2021 Opioid dependence uncomplicated BH Subst ance Abuse with Lexy Llanos [facility] 11/03/2021 Assessment of body mass inde x [Body mass index [BMI] 25.0-25.9, adult] Medical Substance Abuse with Je Michael [employer] MECHANIC 11/03/2021 Opioid dependence uncomplicated BH Subst ance Abuse with Lexy Llanos [facility] 10/20/2021 Assessment of body mass inde x [Body mass index [BMI] 25.0-25.9, adult] Medical Substance Abuse with Je Michael [employer]CH[employer]IC 10/20/2021 Opioid dependence uncomplicated Medical Substance Abuse with Je Michael [employer] MECHANIC 10/20/2021 Opioid dependence uncomplicated BH Estab lished Patient with Cassidy Hester [facility] 10/06/2021 Z68.25 - Body mass index [BM I] 25.0-25.9, adult Medical Substance Abuse with Brina Brothers [employer] MECHANIC 10/06/2021 Opioid dependence uncomplicated BH Subst ance Abuse with Lexy Llanos [facility] 09/30/2021 Z68.25 - Body mass index [BM I] 25.0-25.9, adult Medical Substance Abuse with Brina Brothers [employer]CH[employer]IC 09/30/2021 Opioid dependence uncomplicated BH Subst ance Abuse with Lexy Llanos [facility] 09/27/2021 Assessment of body mass inde x [Body mass index [BMI] 26.0-26.9, adult] Medical Substance Abuse with Je Michael [employer] MECHANIC 09/27/2021 Opioid dependence uncomplicated Medical Substance Abuse with Je Michael [employer] MECHANIC 09/27/2021 Alcohol abuse - uncomplicated BH Establi shed Patient with Lexy Llanos [facility] 09/22/2021 Opioid dependence uncomplicated BH Estab lished Patient with Lexy Llanos [facility] 09/22/2021 Uncomplicated cocaine abuse BH Establish ed Patient with Lexy Llanos [facility] 09/22/2021 Assessment of body mass inde x [Body mass index [BMI] 25.0-25.9, adult] Medical New Patient with Je Michael [employer]CH[employer]IC 09/22/2021 Diabetes Risk Test Score was three score 09/22/2021 Medical New Patient with Je Michael [employer]ER MECHANIC 09/22/2021 Screening for Hep C Medical New Patient with Je Michael [employer] MECH[employer]IC 09/22/2021 Screening for HIV Medical New Patient with Je Michael F[employer]ER MECHANIC 09/22/2021 [facility] Work Phone: [phone]) 281-594407-08-2022 Evaluation note Includes: Assessments for all patient encounters Findings Encounter Date Opioid dependence BH Substance Abuse w ith Cassidy Hester [facility] 12/16/2021 Opioid dependence, on agonist therapy BH Substance Abuse with Cassidytejinder Hester [facility] 12/16/2021 Assessment of body mass index Medical Kat bstance Abuse with Priscilla Dash [employer]CH[employer]IC 12/16/2021 Dependence on nicotine in ci garettes - uncomplicated Medical Substance Abuse with Priscilla Dash [employer]CH[employer]IC 12/16/2021 Opioid dependence uncomplicated Medical Substance Abuse with Priscilla Hardy [employer]CH[employer]IC 12/16/2021 Opioid dependence uncomplicated BH Subst ance Abuse with Lexy Llanos [facility] 11/03/2021 Assessment of body mass inde x [Body mass index [BMI] 25.0-25.9, adult] Medical Substance Abuse with Je Michael [employer] MECHANIC 11/03/2021 Opioid dependence uncomplicated BH Subst ance Abuse with Lexy Llanos [facility] 10/20/2021 Assessment of body mass inde x [Body mass index [BMI] 25.0-25.9, adult] Medical Substance Abuse with Je Michael [employer] MECHANIC 10/20/2021 Opioid dependence uncomplicated Medical Substance Abuse with Je Michael F[employer]ER MECHANIC 10/20/2021 Opioid dependence uncomplicated BH Estab lished Patient with Cassidy Hester [facility] 10/06/2021 Z68.25 - Body mass index [BM I] 25.0-25.9, adult Medical Substance Abuse with Brina Zev [employer]CH[employer]IC 10/06/2021 Opioid dependence uncomplicated BH Subst ance Abuse with Lexy Llanos [facility] 09/30/2021 Z68.25 - Body mass index [BM I] 25.0-25.9, adult Medical Substance Abuse with Brina Zev [employer]CHANIC 09/30/2021 Opioid dependence uncomplicated BH Subst ance Abuse with Lexy Llanos [facility] 09/27/2021 Assessment of body mass inde x [Body mass index [BMI] 26.0-26.9, adult] Medical Substance Abuse with Je Michael [employer] MECHANIC 09/27/2021 Opioid dependence uncomplicated Medical Substance Abuse with Je Michael [employer]ER MECHANIC 09/27/2021 Alcohol abuse - uncomplicated BH Establi shed Patient with Lexy Llanos [facility] 09/22/2021 Opioid dependence uncomplicated BH Estab lished Patient with Lexy Llanos [facility] 09/22/2021 Uncomplicated cocaine abuse BH Establish ed Patient with Lexy Llanos [facility] 09/22/2021 Assessment of body mass inde x [Body mass index [BMI] 25.0-25.9, adult] Medical New Patient with Je Michael F[employer]CHANIC 09/22/2021 Diabetes Risk Test Score was three score 09/22/2021 Medical New Patient with Je Michael F[employer]ER MECHANIC 09/22/2021 Screening for Hep C Medical New Patient with Je Michael [employer] MECHANIC 09/22/2021 Screening for HIV Medical New Patient with Je Michael F[employer]ER MECHANIC 09/22/2021 [facility] Work Phone: [phone]) 454-964307-08-2022 History general Narrative - Reported Includes: Medical History in patient's chart Description Last Updated No previous hospitalizations 12/16/2021 History of extraction of wisdom tooth History of tooth extraction 09/22/2021 History of gastrointestinal disorder col itis and ulsers 09/22/2021 [facility] Work Phone: [phone]) 562-483306-05-2022 Hospital Discharge instructions* Instructions* Mikayla Austin MD - 11/13/2021 I recommend the ED is ibuprofen, 600 mg every 8 hours, for the next 2 to 3 days. Additionally, you may use hydrocodone as prescribed for breakthrough pain. Use caution while taking this and do not drive or perform dangerous activity while taking. You may take 1 tablet up to every 6 hours as needed. Return to the ED for worsening pain, changes in strength or sensation to the leg, increasing swelling, swelling around the thigh or the groin or any other concerns. [facility] [phone]) [phone] Evaluation note Includes: Assessments for all patient encounters Findings Encounter Date Opioid dependence uncomplicated BH Subst ance Abuse with Lexy Llanos [facility] 11/03/2021 Assessment of body mass inde x [Body mass index [BMI] 25.0-25.9, adult] Medical Substance Abuse with Je Michael [employer]CH[employer]IC 11/03/2021 Opioid dependence uncomplicated BH [facility]st [facility] 10/20/2021 Assessment of body mass inde x [Body mass index [BMI] 25.0-25.9, adult] Medical Substance Abuse with Je Michael [employer]ER MECH[employer]IC 10/20/2021 Opioid dependence uncomplicated Medical Substance Abuse with Je Michael F[employer]ER MECHANIC 10/20/2021 Opioid dependence uncomplicated BH Estab lished Patient with [facility] 10/06/2021 Z68.25 - Body mass index [BM I] 25.0-25.9, adult Medical Substance Abuse with Brina Zev [employer] MECHANIC 10/06/2021 Opioid dependence uncomplicated BH Subst ance Abuse with Lexy Llanos [facility] 09/30/2021 Z68.25 - Body mass index [BM I] 25.0-25.9, adult Medical Substance Abuse with Brina Zev [employer]CH[employer]IC 09/30/2021 Opioid dependence uncomplicated BH Subst ance Abuse with Lexy Llanos [facility] 09/27/2021 Assessment of body mass inde x [Body mass index [BMI] 26.0-26.9, adult] Medical Substance Abuse with Je Michael F[employer]ER MECHANIC 09/27/2021 Opioid dependence uncomplicated Medical Substance Abuse with Je Michael F[employer]ER MECHANIC 09/27/2021 Alcohol abuse - uncomplicated BH Establi shed Patient with Lexy Llanos [facility] 09/22/2021 Opioid dependence uncomplicated BH Estab lished Patient with Lexy Llanos [facility] 09/22/2021 Uncomplicated cocaine abuse BH Establish ed Patient with Lexy Llanos [facility] 09/22/2021 Assessment of body mass inde x [Body mass index [BMI] 25.0-25.9, adult] Medical New Patient with Je Michael F[employer] MECHANIC 09/22/2021 Diabetes Risk Test Score was three score 09/22/2021 Medical New Patient with Je Michael F[employer]ER MECHANIC 09/22/2021 Screening for Hep C Medical New Patient with Je Michael [employer]CHANIC 09/22/2021 Screening for HIV Medical New Patient with Je Michael F[employer]ER MECHANIC 09/22/2021 [facility] Work Phone: [phone]) [phone] Evaluation note Includes: Assessments for all patient encounters Findings Encounter Date Opioid dependence uncomplicated BH Subst ance Abuse with Lexy Llanos [facility] 10/20/2021 Assessment of body mass inde x [Body mass index [BMI] 25.0-25.9, adult] Medical Substance Abuse with Je Michael [employer]CH[employer]IC 10/20/2021 Opioid dependence uncomplicated Medical Substance Abuse with Je Michael [employer]ER MECHANIC 10/20/2021 Opioid dependence uncomplicated BH Estab lished Patient with Cassidy Hester [facility] 10/06/2021 Z68.25 - Body mass index [BM I] 25.0-25.9, adult Medical Substance Abuse with Brina Zev [employer]IC 10/06/2021 Opioid dependence uncomplicated BH Subst ance Abuse with Lexy Llanos [facility] 09/30/2021 Z68.25 - Body mass index [BM I] 25.0-25.9, adult Medical Substance Abuse with Brina Zev [employer]IC 09/30/2021 Opioid dependence uncomplicated BH Subst ance Abuse with Lexy Llanos [facility] 09/27/2021 Assessment of body mass inde x [Body mass index [BMI] 26.0-26.9, adult] Medical Substance Abuse with Je Michael [employer] MECH[employer]IC 09/27/2021 Opioid dependence uncomplicated Medical Substance Abuse with Je Michael F[employer]ER MECHANIC 09/27/2021 Alcohol abuse - uncomplicated BH Establi shed Patient with Lexy Llanos [facility] 09/22/2021 Opioid dependence uncomplicated BH Estab lished Patient with Lexy Llanos [facility] 09/22/2021 Uncomplicated cocaine abuse BH Establish ed Patient with Lexy Llanos [facility] 09/22/2021 Assessment of body mass inde x [Body mass index [BMI] 25.0-25.9, adult] Medical New Patient with Je Michael [employer]CHANIC 09/22/2021 Diabetes Risk Test Score was three score 09/22/2021 Medical New Patient with Je Michael F[employer]ER [employer]CHANIC 09/22/2021 Screening for Hep C Medical New Patient with Je Michael [employer]CH[employer]IC 09/22/2021 Screening for HIV Medical New Patient with Je Michael F[employer]ER MECHANIC 09/22/2021 [facility] Work Phone: 1([phone]) [phone] Evaluation note Includes: Assessments for all patient encounters Findings Encounter Date Z68.25 - Body mass index [BM I] 25.0-25.9, adult Medical Substance Abuse with Brina Zev [employer]CH[employer]IC 10/06/2021 Opioid dependence uncomplicated BH Subst ance Abuse with Lexy Llanos [facility] 09/30/2021 Z68.25 - Body mass index [BM I] 25.0-25.9, adult Medical Substance Abuse with Brina Zev [employer]CH[employer]IC 09/30/2021 Opioid dependence uncomplicated BH Subst ance Abuse with Lexy Llanos [facility] 09/27/2021 Assessment of body mass inde x [Body mass index [BMI] 26.0-26.9, adult] Medical Substance Abuse with Je Michael F[employer]ER [employer]CHANIC 09/27/2021 Opioid dependence uncomplicated Medical Substance Abuse with Je Michael F[employer]ER MECHANIC 09/27/2021 Alcohol abuse - uncomplicated BH Establi shed Patient with Lexy Llanos [facility] 09/22/2021 Opioid dependence uncomplicated BH Estab lished Patient with Lexy Llanos [facility] 09/22/2021 Uncomplicated cocaine abuse BH Establish ed Patient with Lexy Llanos [facility] 09/22/2021 Assessment of body mass inde x [Body mass index [BMI] 25.0-25.9, adult] Medical New Patient with Je Michael FENDER MECHANIC 09/22/2021 Diabetes Risk Test Score was three score 09/22/2021 Medical New Patient with Je Michael FENDER MECHANIC 09/22/2021 Screening for Hep C Medical New Patient with Je Michael FENDER MECHANIC 09/22/2021 Screening for HIV Medical New Patient with Je Michael FENDER MECHANIC 09/22/2021 [facility] Work Phone: [phone]) 538-125704-14-2022 Evaluation note Includes: Assessments for all patient encounters Findings Encounter Date Alcohol abuse - uncomplicated BH Establi shed Patient with Lexy Llanos LPCC-S 09/22/2021 Opioid dependence uncomplicated BH Estab lished Patient with Lexy Llanos LPCC-S 09/22/2021 Uncomplicated cocaine abuse Establish ed Patient with Lexy Llanos LPCC-S 09/22/2021 Assessment of body mass inde x [Body mass index [BMI] 25.0-25.9, adult] Medical New Patient with Je Michael FENDER MECHANIC 09/22/2021 Diabetes Risk Test Score was three score 09/22/2021 Medical New Patient with Je Michael FENDER MECHANIC 09/22/2021 [facility] Work Phone: [phone]) 945-817004-14-2022 Evaluation note Includes: Assessments for all patient encounters Findings Encounter Date Alcohol abuse - uncomplicated BH Establi shed Patient with Lexy Llanos LPCC-S 09/22/2021 Opioid dependence uncomplicated BH Estab lished Patient with Lexy Llanos LPCC-S 09/22/2021 Uncomplicated cocaine abuse Establish ed Patient with Lexy Llanos LPCC-S 09/22/2021 Assessment of body mass inde x [Body mass index [BMI] 25.0-25.9, adult] Medical New Patient with Je Michael FENDER MECHANIC 09/22/2021 Diabetes Risk Test Score was three score 09/22/2021 Medical New Patient with Je Michael FENDER MECHANIC 09/22/2021 Screening for Hep C Medical New Patient with Je Michael FENDER MECHANIC 09/22/2021 Screening for HIV Medical New Patient with Je Michael FENDER MECHANIC 09/22/2021 [facility] Work Phone: [phone]) 706-666404-14-2022 History general Narrative - Reported Includes: Medical History in patient's chart Description Last Updated History of extraction of wisdom tooth History of tooth extraction 09/22/2021 History of gastrointestinal disorder col itis and ulsers 09/22/2021 [facility] Work Phone: Evaluation note Includes: Assessments for all patient encounters Findings Encounter Date Assessment of body mass inde x [Body mass index [BMI] 26.0-26.9, adult] Medical Substance Abuse with Je Michael FENDER MECHANIC 09/27/2021 Opioid dependence uncomplicated Medical Substance Abuse with Je Michael FENDER MECHANIC 09/27/2021 Alcohol abuse - uncomplicated BH Establi shed Patient with Lexy Llanos LPCC-S 09/22/2021 Opioid dependence uncomplicated BH Estab lished Patient with Lexy Llanos LPCC-S 09/22/2021 Uncomplicated cocaine abuse BH Establish ed Patient with Lexy Llanos LPCC-S 09/22/2021 Assessment of body mass inde x [Body mass index [BMI] 25.0-25.9, adult] Medical New Patient with Je Michael FENDER MECHANIC 09/22/2021 Diabetes Risk Test Score was three score 09/22/2021 Medical New Patient with Je Michael FENDER MECHANIC 09/22/2021 Screening for Hep C Medical New Patient with Je Michael FENDER MECHANIC 09/22/2021 Screening for HIV Medical New Patient with Je Michael FENDER MECHANIC 09/22/2021 [facility] Work Phone: Evaluation note Includes: Assessments for all patient encounters Findings Encounter Date Opioid dependence uncomplicated BH Subst ance Abuse with Lexy Llanos LPCC-S 09/27/2021 Assessment of body mass inde x [Body mass index [BMI] 26.0-26.9, adult] Medical Substance Abuse with Je Michael FENDER MECHANIC 09/27/2021 Opioid dependence uncomplicated Medical Substance Abuse with Je Michael FENDER MECHANIC 09/27/2021 Alcohol abuse - uncomplicated BH Establi shed Patient with Lexy Llanos LPCC-S 09/22/2021 Opioid dependence uncomplicated BH Estab lished Patient with Lexy Llanos LPCC-S 09/22/2021 Uncomplicated cocaine abuse BH Establish ed Patient with Lexy Llanos LPCC-S 09/22/2021 Assessment of body mass inde x [Body mass index [BMI] 25.0-25.9, adult] Medical New Patient with Je Michael FENDER MECHANIC 09/22/2021 Diabetes Risk Test Score was three score 09/22/2021 Medical New Patient with Je Michael FENDER MECHANIC 09/22/2021 Screening for Hep C Medical New Patient with Je Michael FENDER MECHANIC 09/22/2021 Screening for HIV Medical New Patient with Je Michael FENDER MECHANIC 09/22/2021 [facility] Work Phone: Evaluation note Includes: Assessments for all patient encounters Findings Encounter Date Opioid dependence uncomplicated BH Subst ance Abuse with Lexy Llanos LPCC-S 09/30/2021 Z68.25 - Body mass index [BM I] 25.0-25.9, adult Medical Substance Abuse with Brina Villelaen FENDER MECHANIC 09/30/2021 Opioid dependence uncomplicated BH Subst ance Abuse with Lexy Llanos LPCC-S 09/27/2021 Assessment of body mass inde x [Body mass index [BMI] 26.0-26.9, adult] Medical Substance Abuse with Je Michael FENDER MECHANIC 09/27/2021 Opioid dependence uncomplicated Medical Substance Abuse with Je Michael FENDER MECHANIC 09/27/2021 Alcohol abuse - uncomplicated BH Establi shed Patient with Lexy Llanos LPCC-S 09/22/2021 Opioid dependence uncomplicated BH Estab lished Patient with Lexy Llanos LPCC-S 09/22/2021 Uncomplicated cocaine abuse Establish ed Patient with Lexy Llanos LPCC-S 09/22/2021 Assessment of body mass inde x [Body mass index [BMI] 25.0-25.9, adult] Medical New Patient with Je Michael FENDER MECHANIC 09/22/2021 Diabetes Risk Test Score was three score 09/22/2021 Medical New Patient with Je Michael FENDER MECHANIC 09/22/2021 Screening for Hep C Medical New Patient with Je Michael FENDER MECHANIC 09/22/2021 Screening for HIV Medical New Patient with Je Michael FENDER MECHANIC 09/22/2021 [facility] Work Phone: Evaluation note Includes: Assessments for all patient encounters Findings Encounter Date Opioid dependence uncomplicated BH Estab lished Patient with Cassidy Hester LPCC-S 10/06/2021 Z68.25 - Body mass index [BM I] 25.0-25.9, adult Medical Substance Abuse with Brina Zev FENDER MECHANIC 10/06/2021 Opioid dependence uncomplicated BH Subst ance Abuse with Lexy Llanos LPCC-S 09/30/2021 Z68.25 - Body mass index [BM I] 25.0-25.9, adult Medical Substance Abuse with Brina Zev FENDER MECHANIC 09/30/2021 Opioid dependence uncomplicated BH Subst ance Abuse with Lexy Llanos LPCC-S 09/27/2021 Assessment of body mass inde x [Body mass index [BMI] 26.0-26.9, adult] Medical Substance Abuse with Je Michael FENDER MECHANIC 09/27/2021 Opioid dependence uncomplicated Medical Substance Abuse with Je Michael FENDER MECHANIC 09/27/2021 Alcohol abuse - uncomplicated BH Establi shed Patient with Lexy Llanos LPCC-S 09/22/2021 Opioid dependence uncomplicated BH Estab lished Patient with Lexy Llanos LPCC-S 09/22/2021 Uncomplicated cocaine abuse BH Establish ed Patient with Lexy Llanos LPCC-S 09/22/2021 Assessment of body mass inde x [Body mass index [BMI] 25.0-25.9, adult] Medical New Patient with Je Michael FENDER MECHANIC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
--- NOTE | 2023-09-01 13:40 | ED_ITS ---
HPI - Abdominal Pain General Chief Complaint: Abdominal Pain Stated Complaint: BOWEL PROBLEMS Time Seen by Provider: 09/01/23 13:01 Source: patient Mode of arrival: Wheelchair Limitations: no limitations History of Present Illness HPI narrative: Patient developed abdominal pain yesterday. She ate steak and potatoes last night. This morning she woke with nausea and vomiting and her abdominal pain worsened. She developed diarrhea later in the day. She denied any urinary symptoms and she is on her period so she sees blood in urine. No fever, chills, flank pain. No skin rash. She had an ED visit for abdominal pain in June [address] and unremarkable blood tests. She said that she has ulcers but does not currently take PPIs or antacids. Related Data Previous Rx's ?Medication ?Instructions ?Recorded hydrocodone 5 mg-acetaminophen 325 1 tab PO Q6H PRN pain 4 days #14 09/01/23 mg tablet tabs levofloxacin 750 mg tablet 750 mg PO DAILY 7 days #7 tabs 09/01/23 metronidazole 500 mg tablet 500 mg PO TID #20 tabs 09/01/23 ondansetron 4 mg disintegrating 4 mg PO Q6H PRN nausea and 09/01/23 tablet vomiting #14 tabs pantoprazole 40 mg tablet,delayed 40 mg PO DAILY #30 tabs 09/01/23 release (Protonix) Allergies Allergy/AdvReac Type Severity Reaction Status Date / Time No Known Drug Allergies Allergy Verified 09/01/23 13:07 [facility] Social History Smoking status: Former smoker Exam Constitutional Vital Signs, click to edit/add: Last Vital Signs Temp 98.6 F 09/01/23 13:03 Pulse 101 H 09/01/23 13:03 Resp 38 H 09/01/23 13:03 BP 128/79 09/01/23 13:03 Pulse Ox 100 09/01/23 13:03 O2 Del Method Room Air 09/01/23 13:03 Course Vital Signs Vital signs: Vital Signs Temperature 98.6 F 09/01/23 13:03 Pulse Rate 101 H 09/01/23 13:03 Respiratory Rate 38 H 09/01/23 13:03 Blood Pressure 128/79 09/01/23 13:03 Pulse Oximetry 100 09/01/23 13:03 Oxygen Delivery Method Room Air 09/01/23 13:03 Temperature 98.6 F 09/01/23 13:03 Pulse Rate 101 H 09/01/23 13:03 Respiratory Rate 38 H 09/01/23 13:03 Blood Pressure 128/79 09/01/23 13:03 Pulse Oximetry 100 09/01/23 13:03 Oxygen Delivery Method Room Air 09/01/23 13:03 MDM - Abdominal Pain MDM Narrative Medical decision making narrative: Peripheral IV established blood drawn and sent for testing. She was extremely anxious therefore she received Ativan in addition to medication for nausea and pain. She was given normal saline IV fluid. Once she had calm down and her pain was controlled she was sent for CT scanning of the abdomen pelvis with IV contrast. White blood cell count was markedly elevated and she received IV Levaquin for coverage until we have the results of her CT scan. It revealed proctocolitis and therefore we added Flagyl, Which she received orally. She also has some gastritis - so with her history of ulcers I will prescribe protonix. She was informed of results and discharged home with prescriptions for Levaquin and Flagyl in addition to Zofran and [place] for pain. Primary care physician follow-up recommended. Emergency department return if she worsens. Lab Data Attestation: I reviewed the patient's lab results. Labs: Lab Results 09/01/23 09/01/23 Range/Units 13:10 13:55 WBC 29.1 H (4.0-11.0) 10^3/uL RBC 5.20 (4.20-5.40) 10^6/uL Hgb 14.4 (12.0-16.0) g/dL Hct 45.3 (36.0-48.0) % MCV 87.1 (81.0-99.0) fL MCH 27.7 (26.7-34.0) pg MCHC 31.8 (29.9-35.2) g/dL RDW 12.9 (11.0-15.0) % Plt Count 427 (150-450) 10^3/uL MPV 11.5 (9.5-13.5) fL Seg Neuts % (Manual) 83.0 Band Neutrophils % 6.0 H (0-5) % Lymphocytes % (Manual) 2.0 L (20.5-60.0) % Monocytes % (Manual) 9.0 (1.7-12.0) % Eosinophils % (Manual) 0.0 L (0.9-7.0) % Basophils % (Manual) 0.0 L (0.2-2.0) % Neutrophils # (Manual) 24.15 H (1.4-6.5) 10^3/uL Band Neutrophils # 1.7 H (0.0-0.3) 10^3/uL Lymphocytes # (Manual) 0.58 L (1.20-3.80) 10^3/uL Monocytes # (Manual) 2.61 H (0.30-0.80) 10^3/uL Eosinophils # (Manual) 0.00 (0.00-0.70) 10^3/uL Basophils # (Manual) 0.00 (0.00-0.10) 10^3/uL Sodium 137 (136-145) mmol/L Potassium 4.5 (3.5-5.1) mmol/L Chloride 98 (98-107) mmol/L Carbon Dioxide 24.0 (21.0-32.0) mmol/L Anion Gap 19.5 BUN 18.0 (7.0-18.0) mg/dL Creatinine 1.02 (0.55-1.02) mg/dL Est GFR ( Amer) >60 (>=60) Est GFR (Non-Af Amer) 59 L (>=60) BUN/Creatinine Ratio 17.6 Glucose 124 H (74-106) mg/dL Lactate 1.9 (0.4-2.0) mmol/L Calcium 9.4 (8.5-10.1) mg/dL Total Bilirubin 0.4 (0.2-1.0) mg/dL AST 23 (15-37) U/L ALT 28 (14-59) U/L Alkaline Phosphatase 76 (46-116) U/L Total Protein 8.5 H (6.4-8.2) g/dL Albumin 4.3 (3.4-5.0) g/dL Globulin 4.2 g/dL Albumin/Globulin Ratio 1.0 Lipase 53.0 (16.0-77.0) U/L Procalcitonin 0.13 (0.00-0.50) ng/mL Urine Color Yellow (YELLOW) Urine Clarity Clear (CLEAR) Urine pH 5.5 (5.0-9.0) Ur Specific Sandy Level >=1.030 A (1.005-1.025) Urine Protein Negative (NEG/TRACE) mg/dL Urine Glucose (UA) Negative (NEGATIVE) mg/dL Urine Ketones 15 A (NEGATIVE) mg/dL Urine Occult Blood Large A (NEGATIVE) Urine Nitrite Negative (NEGATIVE) Urine Bilirubin Negative (NEGATIVE) Urine Urobilinogen 0.2 (0.2-1.0) EU/dL Ur Leukocyte Esterase Negative (NEGATIVE) Urine RBC 20-50 A (0-2) #/HPF Urine WBC None seen (NONE SEEN) #/HPF Ur Squamous Epith Cells Rare (NONE/RARE) #/LPF Urine Crystals None seen (None Seen) #/HPF Urine Bacteria Trace A (NONE SEEN) #/HPF Urine Casts None seen (NONE SEEN) #/LPF Urine Mucus None seen (NONE SEEN) Ur Culture Indicated? No Imaging Data CT scan - abdomen: Radiologist's impression: ITS Impressions Abdomen/Pelvis CT 09/01/23 15:20 IMPRESSION: Mild gastritis. Suspect mild proctocolitis involving the sigmoid and descending colon. Fibroid uterus. Bilateral L5 pars defects with minimal L5 anterolisthesis. Electronically authenticated by: KRISTY CARDONA Date: 09/01/2023 16:59 Discharge Plan Discharge Stand Alone Forms: Portal Instructions Chief Complaint: Abdominal Pain Clinical Impression: Gastritis, Proctocolitis Patient Disposition: Home, Self-Care Time of Disposition Decision: 17:08 Prescriptions / Home Meds: New metronidazole 500 mg tablet 500 mg PO TID Qty: 20 0RF levofloxacin 750 mg tablet 750 mg PO DAILY 7 Days Qty: 7 0RF ondansetron 4 mg tablet,disintegrating 4 mg PO Q6H PRN (Reason: nausea and vomiting) Qty: 14 0RF hydrocodone-acetaminophen 5-325 mg tablet 1 tab PO Q6H PRN (Reason: pain) 4 Days Qty: 14 0RF Rx Instructions: ICD 10 = K52 pantoprazole [Protonix] 40 mg tablet,delayed release (DR/EC) 40 mg PO DAILY Qty: 30 0RF Print Language: Spanish Instructions: Gastritis (ED), Proctitis (ED), Colitis (ED) Referrals: AMBER PATEL APRN [Primary Care Provider] - 1 week
[2023-09-01 13:47] LABS: Hematocrit 45.3 % (36.0-48.0); Hemoglobin 14.4 g/dL (12.0-16.0); Mean Corpuscular HGB Conc 31.8 g/dL (29.9-35.2); Mean Corpuscular Hemoglobin 27.7 pg (26.7-34.0); Mean Corpuscular Volume 87.1 fL (81.0-99.0); Mean Platelet Volume 11.5 fL (9.5-13.5); Platelet Count 427 10^3/uL (150-450); Red Cell Distribution Width 12.9 % (11.0-15.0); White Blood Count 29.1 10^3/uL (4.0-11.0)
[2023-09-01] MEDS: 0.9 % SODIUM CHLORIDE 1,000 ML 999 ML IV (13:50)
[2023-09-01] MEDS: ONDANSETRON PF 4 MG/2 ML VIAL IV (13:55)
[2023-09-01] MEDS: PANTOPRAZOLE SODIUM 40 MG VIAL IV (13:55)
[2023-09-01] MEDS: LORAZEPAM 2 MG/ML 1 ML VIAL 0.5 MG IV (13:55)
[2023-09-01 13:56] LABS: Alanine Aminotransferase 28 U/L (14-59); Albumin Level 4.3 g/dL (3.4-5.0); Alkaline Phosphatase 76 U/L (46-116); Anion Gap 19.5; Aspartate Amino Transferase 23 U/L (15-37); BUN Creatinine Ratio 17.6; Bilirubin Total 0.4 mg/dL (0.2-1.0); Calcium 9.4 mg/dL (8.5-10.1); Chloride 98 mmol/L (98-107); Estimated GFR (African America >60 (>=60); Estimated GFR (Non-African Ame 59 (>=60); Globulin 4.2 g/dL; Glucose 124 mg/dL (74-106); Potassium 4.5 mmol/L (3.5-5.1); Sodium 137 mmol/L (136-145); Total Protein 8.5 g/dL (6.4-8.2)
[2023-09-01] MEDS: HYDROMORPHONE HCL 0.5 MG/0.5 ML SYRINGE IV (13:58)
[2023-09-01 13:59] LABS: Lactate/Lactic Acid 1.9 mmol/L (0.4-2.0)
[2023-09-01] MEDS: PROMETHAZINE HCL 12.5 MG in 0.9 % SODIUM CHLORIDE 50 ML 204 MG IV (13:59)
[2023-09-01 14:06] LABS: PROCALCITONIN 0.13 ng/mL (0.00-0.50)
[2023-09-01 14:10] LABS: Band Neutrophils Absolute 1.7 10^3/uL (0.0-0.3); Lymphocytes Absolute Manual 0.58 10^3/uL (1.20-3.80); Monocytes Absolute Manual 2.61 10^3/uL (0.30-0.80); Segmented Neut Absolute Manual 24.15 10^3/uL (1.4-6.5)
[2023-09-01 14:16] LABS: Bilirubin Urine NEGATIVE (NEGATIVE); Blood Urine LARGE (NEGATIVE); Clarity Urine CLEAR (CLEAR); Color Urine YELLOW (YELLOW); Glucose Urine UA NEGATIVE (NEGATIVE); Ketones Urine 15 mg/dL (NEGATIVE); Leukocyte Esterase Urine NEGATIVE (NEGATIVE); Nitrite Urine NEGATIVE (NEGATIVE); Protein Urine NEGATIVE (NEG/TRACE); Specific Gravity Urine >=1.030 (1.005-1.025); Urobilinogen Urine 0.2 EU/dL (0.2-1.0); pH Urine 5.5 (5.0-9.0)
[2023-09-01 14:18] LABS: Urine Microscopic Indicated YES
[2023-09-01 14:33] LABS: Bacteria Urine TRACE #/HPF (NONE SEEN); Cast Seen? NONE SEEN #/LPF (NONE SEEN); Crystals Seen? None Seen #/HPF (None Seen); Mucus Urine NONE SEEN (NONE SEEN); RBC Urine 20-50 #/HPF (0-2); Squamous Epithelial Cell Urine RARE #/LPF (NONE/RARE); Urine Culture Indicated NO; WBC Urine NONE SEEN #/HPF (NONE SEEN)
--- NOTE | 2023-09-01 15:20 | CT_ITS ---
[facility] [place] [id number] Patient Name: VINCENT SARAVIA MRN: [id number] date: 1980 Sex: F Assigned Patient Location: ER Current Patient Location: ER Accession/Order Number: [id number] Exam Date: 09/01/2023 15:40 Report Date: 09/01/2023 16:59 At the request of: ROCHELLE SPIVEY Procedure: CT abdomen pelvis w con EXAMINATION: CT abdomen pelvis w con, 09/01/2023 12:40 PM PDT HISTORY: abdominal pain, sepsis COMPARISON: 06/23/2023 TECHNIQUE: CT scan of the abdomen and pelvis was performed with IV contrast. CT dose reduction technique was used, including Automated Exposure Control. FINDINGS: Lung: No significant finding. Liver: No significant finding. Gallbladder: No significant finding. Spleen: No significant finding. Pancreas: No significant finding. Adrenal glands: No significant finding. Kidneys, ureters and bladder: No significant finding. Bowel: Mild wall thickening of the distal gastric body. No evidence of bowel obstruction. Normal appendix. Mild wall thickening of the descending and sigmoid colon. Mild wall thickening of the rectum. Peritoneum/retroperitoneum: No significant finding. Lymph nodes: No significant finding. Vessels: No significant finding. Body wall: No significant finding. Reproductive: 1.8 cm uterine fibroid. Bones: Bilateral L5 pars defects. Minimal L5 anterolisthesis. CT/CT abdomen pelvis w con IMPRESSION: Mild gastritis. Suspect mild proctocolitis involving the sigmoid and descending colon. Fibroid uterus. Bilateral L5 pars defects with minimal L5 anterolisthesis. Electronically authenticated by: KRISTY CARDONA Date: 09/01/2023 16:59
[2023-09-01] MEDS: LEVOFLOXACIN IN DEXTROSE 5 % 750 MG/150 ML IV.SOLN 100 MG IV (16:01)
[2023-09-01] MEDS: METRONIDAZOLE 250 MG TABLET 500 MG PO (17:31)
== END 2023-09-01 17:39 | disposition home or self-care (01) ==
PROVIDERS: Emergency Provider Emergency Medicine; PCP Nurse Practitioner Primary Care
DX: K29.70 Gastritis, unspecified, without bleeding (principal)
CPT/HCPCS: 36415; 74177; 80053; 81001; 83605; 83690; 84145; 85007; 85027; 87040; 87507; 96361; 96365; 96366; 96367; 96375; 99285; J1170; Q9967